=== PATIENT | male | born 1965 | race Caucasian/White ===

== ENCOUNTER 2018-09-04 00:54 | Inpatient (IN) | payer MEDICARE, MEDICAID ==
[~2018-09-04] VITALS: Ht 190.5 cm; Wt 117.9 kg
--- NOTE | 2018-09-04 01:05 | NUR ---
PT [facility]IBRA/[employer] FROM [facility] ER C/C +SI/-HI WITH PLAN TO RUN INTO TRAFFIC. [employer] PUT PATIENT ON 5150. PT IS VERBAL. NAD NOTED. RESP EVEN AND UNLABORED. R FOOT SWOLLEN NOTED. PT ON MONITOR IN BED 12. WILL CONTINUE TO MONITOR.
--- NOTE | 2018-09-04 01:10 | NUR ---
PHLEB AT BEDSIDE FOR LAB DRAW
[2018-09-04 01:18] LABS: BASOPHILS % (AUTO) 0.5 % (0.0-2.0); EOSINOPHILS % (AUTO) 1.8 % (0.0-6.0); HEMATOCRIT 41 % (39-51); HEMOGLOBIN 13.8 g/dL (13.5-17.5); LYMPHOCYTES % (AUTO) 15.8 % (20.0-44.0); MEAN CORPUSCULAR HGB CONC 34 g/dl (31.0-36.0); MEAN CORPUSCULAR VOLUME 86 fL (80-96); MONOCYTES # (AUTO) 0.6 /CMM (0.1-1.30); MONOCYTES % (AUTO) 9.6 % (2.0-12.0); NEUTROPHILS # (AUTO) 4.7 /CMM (1.8-8.9); NEUTROPHILS % (AUTO) 72.3 % (43.0-81.0); PLATELET COUNT (AUTO) 175 /CMM (150-450); RED BLOOD CELL COUNT(AUTO) 4.72 MIL/uL (4.5-6.0); WHITE BLOOD COUNT (AUTO) 6.5 K/uL (4.3-11.0)
--- NOTE | 2018-09-04 01:26 | NUR ---
TECH AT BEDSIDE FOR EKG
[2018-09-04 01:40] LABS: ACETAMINOPHEN 0 ug/ml (10-30); ALANINE AMINOTRANSFERASE 83 U/L (12-78); ALBUMIN 3.9 g/dL (3.4-5.0); ALCOHOL, BLOOD < 3 mg/dL (0-0); ALKALINE PHOSPHATASE 128 U/L (46-116); ASPARTATE AMINOTRANSFERASE 59 U/L (15-37); BILIRUBIN,DIRECT 0.1 mg/dL (0.0-0.2); BILIRUBIN,TOTAL 0.3 mg/dL (0.2-1.0); CALCIUM, SERUM 8.3 mg/dL (8.5-10.1); CARBON DIOXIDE 27 mmol/L (21-32); CHLORIDE 105 mmol/L (98-107); CREATININE 0.8 mg/dL (0.6-1.3); GLUCOSE 125 mg/dL (74-106); SALICYLATE 0.8 mg/dL (2.8-20.0); SODIUM SERUM 141 mmol/L (136-145); TOTAL PROTEIN, SERUM 6.7 g/dL (6.4-8.2); UREA NITROGEN, BLOOD 8 mg/dL (7-18)
[2018-09-04 01:41] LABS: POTASSIUM 2.8 mmol/L (3.5-5.1)
[2018-09-04] MEDS ORDERED: ASPIRIN 81 MG TAB.CHEW PO ONE (02:00)
--- NOTE | 2018-09-04 02:06 | NUR ---
URINE COLLECTED AND SENT TO LAB
[2018-09-04] MEDS ORDERED: MIRT30TA PO (02:19)
[2018-09-04] MEDS ORDERED: ZOLP10TA2 PO (02:19)
[2018-09-04] MEDS ORDERED: LORA-259 PO (02:19)
[2018-09-04] MEDS ORDERED: OLAN15TA3 PO (02:19)
[2018-09-04 02:21] LABS: APPEARANCE,URINE CLEAR (CLEAR); BILIRUBIN,URINE NEGATIVE (NEGATIVE); BLOOD, URINE NEGATIVE Ery/uL (NEGATIVE); COLOR,URINE YELLOW (YELLOW); KETONES,URINE NEGATIVE (NEGATIVE); LEUKOCYTE ESTERASE ,URINE NEGATIVE (NEGATIVE); NITRITE, URINE NEGATIVE (NEGATIVE); PH,URINE 6.5 (5.0-8.0); PROTEIN,URINE NEGATIVE (NEGATIVE); UGLUCOSE NEGATIVE (NEGATIVE); UROBILINOGEN,URINE 0.2 EU/dL (0.2)
[2018-09-04] MEDS ORDERED: FURO-145 PO (02:24)
[2018-09-04] MEDS ORDERED: APIX5TAB PO (02:24)
[2018-09-04] MEDS ORDERED: PANT40TA4 PO (02:24)
[2018-09-04] MEDS ORDERED: LEVE1000 PO (02:24)
[2018-09-04] MEDS ORDERED: METO50TA16 PO (02:24)
[2018-09-04] MEDS ORDERED: DIGO125T PO (02:24)
[2018-09-04] MEDS ORDERED: PHEN97.22 PO (02:24)
[2018-09-04] MEDS ORDERED: ATOR20TA PO (02:24)
[2018-09-04] MEDS: POTASSIUM CL. PREMIX PERIPHER. 50 ML IV SCH ×6 (02:30→08:30)
[2018-09-04] MEDS: Magnesium 1GM/D5W 100ML PREMIX 100 ML IV SCH ×2 (02:30→03:07)
[2018-09-04] MEDS ORDERED: MAG HYDROX/AL HYDROX/SIMETH 30 ML UDC PO PRN (02:30)
[2018-09-04] MEDS ORDERED: ACETAMINOPHEN 325 MG TABLET PO PRN (02:30)
[2018-09-04] MEDS ORDERED: MAGNESIUM HYDROXIDE 30 ML UDC PO PRN (02:30)
[2018-09-04] MEDS ORDERED: Magnesium 1GM/D5W 100ML PREMIX 200 ML IV ONE (02:39)
[2018-09-04] MEDS ORDERED: ASPIRIN 81 MG TAB.CHEW ONE (02:40)
[2018-09-04] MEDS ORDERED: POTASSIUM CL. PREMIX PERIPHER. 300 ML ONE (02:48)
[2018-09-04] MEDS ORDERED: NITROGLYCERIN 0.4 MG/TAB BOTTLE SL ONE (03:15)
--- NOTE | 2018-09-04 03:16 | NUR ---
REPORT GIVEN TO JAGDEEP KELLER FOR MARTINA
--- NOTE | 2018-09-04 03:19 | NUR ---
1/6 POTASSIM CHLORIDE INFUSING. 5 BAGS TAKEN UP WITH PATIENT FOR JAGDEEP KELLER TO INFUSE. 1/2 MAGNESIUM SULFATE INFUSING. 1 BAG TAKEN UP WITH PATIENT FOR JAGDEEP KELLER TO INFUSE.
--- NOTE | 2018-09-04 03:45 | NUR ---
TD PRODUCTION INTERN NOTE: PT ADMITTED FROM ER VIA [facility] WITH ADMITTING DIAGNOSIS OF NSTEMI. PT IS ALERT AND ORIENTED X4. ABLE TO MAKE NEEDS KNOWN. NO APPARENT DISTRESS NOTED. NO COMPLAINTS OF PAIN OR DISCOMFORT AT THIS TIME. NO AUDITORY HALLUCINATION NOTED PER PT. ON ROOM AIR, SATURATING WELL. NO SOB NOTED. ON TELE MONITOR AFIB HR 94BPM. PT HAS AN IV ON RIGHT WRIST #20 INTACT AND PATENT, FLUSHING WELL. NO SIGNS/SYMPTOMS OF ASPIRATION NOTED. PERTINENT ASSESSMENTS DONE. TUMOR NOTED ON RLE, PICTURE TAKEN AND PLACED ON CHART. CALL LIGHT PLACED WITHIN REACH. KEPT CLEAN, DRY AND COMFORTABLE. SIDE RAILS UP X3. BED ALARM ON. BED LOCKED AND IN LOWEST POSITION. WILL CONTINUE TO MONITOR PT.
[2018-09-04 04:01] VITALS: BP 130/82
[2018-09-04] MEDS: MORPHINE SULFATE INJ 2 MG/ML DISP.SYRIN IV PRN ×2 (05:31→20:20)
--- NOTE | 2018-09-04 06:54 | NUR ---
TD RN NOTE: NO CHANGES NOTED THROUGHOUT THE SHIFT. NO APPARENT DISTRESS NOTED. NO COMPLAINTS OF PAIN OR DISCOMFORT AT THIS TIME. NO SOB NOTED. AFIB ON TELE MONITOR HR 94BPM. KEPT CLEAN, DRY AND COMFORTABLE. CALL LIGHT PLACED WITHIN REACH. SAFETY AND FALL PRECAUTIONS OBSERVED AND MAINTAINED. WILL ENDORSE TO DAY SHIFT RN FOR CONTINUITY OF CARE.
[2018-09-04] MEDS ORDERED: IPRA3AMP23 IH (07:59)
[2018-09-04] MEDS ORDERED: ACET-868 PO (07:59)
[2018-09-04 08:00] VITALS: BP 147/85
--- NOTE | 2018-09-04 08:00 | NUR ---
RN NOTE: RECEIVED PATIENT IN BED, AWAKE, ALERT AND VERBALLY RESPONSIVE. RESPIRATION EVEN AND UNLABORED. DENIED ANY PAIN INCLUDING CHEST PAIN. NOTED WITH (R) WRIST IV SITE INFUSING POTASSIUM IV, BUT PATIENT WAS TOUCHING THE IV PUMP AND KEPT TURNING IT OFF BECAUSE HE DOES NOT WANT THE IV POTASSIUM DUE TO BURNING SENSATION. SPOKE WITH THE PATIENT AND INFORMED HIM IF MAYBE THE MD CAN BE INFORMED THAT HE NEEDED TO REPLACE POTASSIUM WITH TABLET FORM. BUT PATIENT STATED THAT HE STILL DOES NOT WANT IT. IV PUMP WAS STOPPED AND WILL INFORM MD ABOUT THE PATIENT'S REFUSAL TO RECEIVE THE IV POTASSIUM REPLACEMENT. BED ALARMED AND LOCKED AT ALL TIMES. CALL LIGHT WITHIN REACH. NEEDS ANTICIPATED. PATIENT ON CLOSE MONITORING WITH STAFF. NO AUDITORY HALLUCINATION NOTED. PATIENT WAS QUIET, COOPERATIVE AND REDIRECTABLE WITH STAFF. WILL CONTINUE TO MONITOR THE PATIENT'S BEHAVIOR AND CONDITION.
[2018-09-04 08:27] LABS: CHOLESTEROL 101 mg/dL (<200); HDL CHOLESTEROL 30 mg/dL (40-60); LDL 48 mg/dL (0-99); THYROID STIMULATING HORMONE 2.827 uIU/mL (0.358-3.74); TRIGLYCERIDES 117 mg/dL (30-150)
[2018-09-04] MEDS: PANTOPRAZOLE 40 MG TABLET.DR PO SCH (08:36)
[2018-09-04 08:50] LABS: MAGNESIUM 1.9 mg/dL (1.8-2.4)
[2018-09-04] MEDS ORDERED: FUROSEMIDE 20 MG TABLET PO SCH (09:00)
[2018-09-04 09:11] LABS: PHOSPHORUS 3.2 mg/dL (2.5-4.9)
[2018-09-04] MEDS: ASPIRIN 81 MG TAB.CHEW PO SCH (09:15)
[2018-09-04] MEDS: LEVETIRACETAM (250 MG) 250 MG TABLET PO SCH ×2 (09:16→17:47)
[2018-09-04] MEDS: DIGOXIN 0.125 MG TABLET PO SCH (09:16)
[2018-09-04] MEDS: APIXABAN 5 MG TABLET PO SCH ×2 (09:17→17:48)
--- NOTE | 2018-09-04 09:46 | NUR ---
RN NOTE: PATIENT RECEIVED 4 BAGS OF POTASSIUM IV FROM LAST NIGHT AND HAS BEEN REFUSING TO RECEIVE THE LAST [address] SPOKE WITH [address]. HILLIARD THAT THE PATIENT REFUSED TO TAKE THE POTASSIUM TABLETS. PER PATIENT, "I DON'T WANT TO TAKE THAT. I WILL THROW IT UP." WITH ORDER TO DC POTASSIUM, NOTED AND CARRIED OUT.
[2018-09-04] MEDS ORDERED: POTASSIUM CHLORIDE 20 MEQ TAB.PRT.SR PO SCH (10:00)
[2018-09-04] MEDS: DILTIAZEM HCL CD 240 MG PO SCH (10:20)
[2018-09-04 12:00] VITALS: BP 131/76
[2018-09-04 16:00] VITALS: BP 133/66
--- NOTE | 2018-09-04 19:45 | NUR ---
RN NOTE: REPORT GIVEN TO PM SHIFT NURSE FOR CONTINUITY OF CARE. PATIENT REMAINED STABLE. ATE 100% OF HIS DINNER MEAL.
--- NOTE | 2018-09-04 19:55 | NUR ---
RN NOTE: PATIENT HAS NO BEHAVIORAL ISSUES OR ANY CHEST PAIN DURING THE SHIFT. REMAINED ON CLOSE MONITORING WITH STAFF.
[2018-09-04 20:00] VITALS: BP 125/66
--- NOTE | 2018-09-04 20:00 | NUR ---
GLOVE CUFFER INITIAL NOTE PT ORIENTED X4. ABLE TO MAKE NEEDS KNOWN. NO APPARENT DISTRESS NOTED. C/O COMPLAINTS OF PAIN & DISCOMFORT IN RT CHEST 02/19. NO AUDITORY HALLUCINATION NOTED PER PT. ON ROOM AIR, SATURATING WELL. NO SOB NOTED. ON TELE MONITOR AFIB HR 110 BPM. PT HAS AN IV ON RIGHT WRIST #20 INTACT AND PATENT, FLUSHING WELL. NO SIGNS/SYMPTOMS OF ASPIRATION NOTED. PERTINENT ASSESSMENTS DONE. CALL LIGHT PLACED WITHIN REACH. KEPT CLEAN, DRY AND COMFORTABLE. SIDE RAILS UP X3. BED ALARM ON. BED LOCKED AND IN LOWEST POSITION. WILL CONTINUE TO MONITOR PT.
[2018-09-04] MEDS: HYDROCODONE/APAP 5/325MG 1 EACH TABLET PO PRN (21:47)
[2018-09-04] MEDS: TEMAZEPAM 15 MG CAPSULE PO PRN (21:47)
[2018-09-04] MEDS: ATORVASTATIN 10 MG TABLET PO SCH (21:48)
[2018-09-04] MEDS ORDERED: MIRTAZAPINE 15 MG TABLET PO SCH (22:00)
[2018-09-04] MEDS ORDERED: OLANZAPINE 5 MG TABLET PO SCH (22:00)
[2018-09-04] MEDS: ONDANSETRON HCL/PF 4 MG/2 ML VIAL IVP PRN (22:14)
[2018-09-05 00:28] VITALS: BP 118/66
[2018-09-05 04:00] VITALS: BP 106/72
--- NOTE | 2018-09-05 06:23 | NUR ---
PSYCHOLOGICAL OPERATIONS SPECIALIST CLOSING NOTE PT ORIENTED X4. ABLE TO MAKE NEEDS KNOWN. NO APPARENT DISTRESS NOTED. DENIES PAIN OR DISCOMFORT AROUND CHEST . NO AUDITORY HALLUCINATION NOTED PER PT. ON ROOM AIR, SATURATING WELL. NO SOB NOTED. ON TELE MONITOR AFIB HR 110 BPM. PT HAS AN IV ON RIGHT WRIST #20 INTACT AND PATENT, FLUSHING WELL. NO SIGNS/SYMPTOMS OF ASPIRATION NOTED. PERTINENT ASSESSMENTS DONE. CALL LIGHT PLACED WITHIN REACH. KEPT CLEAN, DRY AND COMFORTABLE. SIDE RAILS UP X3. BED ALARM ON. BED LOCKED AND IN LOWEST POSITION. WILL CONTINUE TO MONITOR PT.
--- NOTE | 2018-09-05 07:30 | NUR ---
RN NOTES RECEIVED PATIENT IN BED, ASLEEP AROUSABLE TO VERBAL STIMULANT, ORIENTED X4. ABLE TO MAKE NEEDS KNOWN. NOT ON ANY FORM OF DISTRESS AT THIS TIME. NO S/S OF PAIN & DISCOMFORT NOTED AT THIS TIME. ON ROOM AIR, SATURATING WELL. NO SOB NOTED. AFIB WITH HR AT 94BPM ON THE MONITOR. IV ON RIGHT HAND G#20 INTACT AND PATENT, FLUSHING WELL. NO SIGN OF INFECTION OR INFILTRATION NOTED AT THIS TIME. CALL LIGHT PLACED WITHIN REACH. SIDE RAILS UP X2. BED ALARM ON. BED LOCKED AND IN LOWEST POSITION. WILL CONTINUE TO MONITOR.
[2018-09-05 08:00] VITALS: BP 125/75
[2018-09-05 09:45] LABS: BASOPHILS % (AUTO) 0.3 % (0.0-2.0); EOSINOPHILS % (AUTO) 2.3 % (0.0-6.0); HEMATOCRIT 42 % (39-51); HEMOGLOBIN 14.2 g/dL (13.5-17.5); LYMPHOCYTES # (AUTO) 0.6 /CMM (0.8-4.8); LYMPHOCYTES % (AUTO) 10.7 % (20.0-44.0); MEAN CORPUSCULAR HGB CONC 34 g/dl (31.0-36.0); MEAN CORPUSCULAR VOLUME 87 fL (80-96); MONOCYTES # (AUTO) 0.5 /CMM (0.1-1.30); MONOCYTES % (AUTO) 8.6 % (2.0-12.0); NEUTROPHILS # (AUTO) 4.7 /CMM (1.8-8.9); NEUTROPHILS % (AUTO) 78.1 % (43.0-81.0); PLATELET COUNT (AUTO) 161 /CMM (150-450); RED BLOOD CELL COUNT(AUTO) 4.82 MIL/uL (4.5-6.0)
[2018-09-05 10:00] LABS: ALBUMIN 3.3 g/dL (3.4-5.0); BILIRUBIN,TOTAL 0.5 mg/dL (0.2-1.0); CALCIUM, SERUM 8.4 mg/dL (8.5-10.1); CREATININE 0.8 mg/dL (0.6-1.3); MAGNESIUM 1.8 mg/dL (1.8-2.4); PHOSPHORUS 3.6 mg/dL (2.5-4.9); POTASSIUM 3.6 mmol/L (3.5-5.1)
[2018-09-05] MEDS: ASPIRIN 81 MG TAB.CHEW PO SCH (10:20)
[2018-09-05] MEDS: PANTOPRAZOLE 40 MG TABLET.DR PO SCH (10:20)
[2018-09-05] MEDS: LEVETIRACETAM (250 MG) 250 MG TABLET PO SCH ×2 (10:21→16:56)
[2018-09-05] MEDS: DIGOXIN 0.125 MG TABLET PO SCH (10:21)
[2018-09-05] MEDS: APIXABAN 5 MG TABLET PO SCH ×2 (10:21→16:56)
[2018-09-05] MEDS: DILTIAZEM HCL CD 240 MG PO SCH (10:22)
--- NOTE | 2018-09-05 14:00 | NUR ---
RN NOTES SEEN AND EXAMINED BY DR. TEJADA. AWARE OF 5150 HOLD FOR THE PATIENT. PER DR. TEJADA PATIENT CAN BE ADMITTED TO [facility] ONCE PATIENT IS MEDICALLY CLEARED BY ATTENDING. ONCE CLEARANCE IS OBTAINED, WE SHOULD INFORM HER SO SHE CAN CALL INTAKE FOR THE PATIENT.
[2018-09-05] MEDS: MORPHINE SULFATE INJ 2 MG/ML DISP.SYRIN IV PRN ×2 (14:25→21:37)
--- NOTE | 2018-09-05 14:55 | NUR ---
RN NOTES OBTAINED DISCHARGE ORDER FROM IZZY MACHADO NP. INFORMED DR TEJADA, AWAITING RESPONSE Addendum: 09/05/18 at 1843 by PATRICA DUENAS RN DR HERNANDEZ RESPONDED, PER LATER: THERE IS NO AVAILABLE BED AT THIS TIME. PATIENT WILL BE AN OVERFLOW AND THAT SHE WILL SEND MESSAGE TO THE INTAKE.
[2018-09-05] MEDS ORDERED: DILT240C88 PO (14:57)
[2018-09-05] MEDS ORDERED: OLAN5TAB3 PO (14:57)
[2018-09-05] MEDS ORDERED: MIRT15TA PO (14:57)
[2018-09-05 16:00] VITALS: BP 132/86
--- NOTE | 2018-09-05 17:48 | NUR ---
RN NOTES PAGED DR TEJADA FOR UPDATE, TO WHICH THE RESPONDED " THEY WILL SEND A CLINICIAN BUT WITH NO DEFINITE TIME OF ARRIVAL"
--- NOTE | 2018-09-05 19:15 | NUR ---
MS/RN OPENING NOTES PT AWAKE, HOB ELEVATED, WATCHING TV. SITTER AT BEDSIDE. ON ROOM AIR, BREATHING EVEN AND UNLABORED. DENIES SOB AND PAIN AT THIS TIME. DENIES SI/HI AND HALLUCINATIONS AT THIS TIME. IV TO RIGHT WRIST PATENT AND INTACT. PT TO BE DISCHARGED TO GPS, AWAITING BED. BED IN LOW/LOCKED POSITION WITH CALL LIGHT IN REACH. BILATERAL UPPER SIDE RAILS IN PLACE. WILL CONTINUE TO MONITOR
--- NOTE | 2018-09-05 19:49 | NUR ---
RN NOTES ENDORSED FOR CONTINUITY OF CARE. NO ACUTE CHANGES WITHIN THE SHIFT. ALL NURSING NEEDS ANTICIPATED AND ATTENDED. SAFETY MEASURES, ASPIRATION PRECAUTION IN PLACE AT ALL TIMES. CALL LIGHT WITHIN REACH. SITTER AT BEDSIDE
[2018-09-05 20:00] VITALS: BP 140/81
[2018-09-05] MEDS ORDERED: OLANZAPINE 5 MG TABLET PO SCH (22:00)
[2018-09-05] MEDS ORDERED: MIRTAZAPINE 15 MG TABLET PO SCH (22:00)
[2018-09-05] MEDS: ONDANSETRON HCL/PF 4 MG/2 ML VIAL IVP PRN (22:05)
--- NOTE | 2018-09-05 22:08 | NUR ---
MS/RN NOTES PT C/O NAUSEA. ADMINISTERED PRN ZOFRAN ORDERED. EMESIS BAGS PROVIDED AND ELEVATED HOB
[2018-09-05] MEDS: ATORVASTATIN 10 MG TABLET PO SCH (23:30)
[2018-09-06] MEDS: TEMAZEPAM 15 MG CAPSULE PO PRN (01:10)
[2018-09-06] MEDS: MORPHINE SULFATE INJ 2 MG/ML DISP.SYRIN IV PRN ×2 (02:26→19:59)
[2018-09-06 04:00] VITALS: BP 114/66
--- NOTE | 2018-09-06 06:40 | NUR ---
MS/RN CLOSING NOTES PT ASLEEP, OPENS EYES TO NAME/TOUCH. ON ROOM AIR, BREATHING EVEN AND UNLABORED. NO S/S OF SOB OR ACUTE DISTRESS. DENIES FURTHER CHEST PAIN. DENIES SI/HI, AND HALLUCINATIONS AT THIS TIME. IV TO RIGHT WRIST PATENT AND INTACT. NO SIGNIFICANT CHANGES OVERNIGHT. ALL NEEDS MET. SITTER REMAINS AT BEDSIDE. BED IN LOW/LOCKED POSITION WITH CALL LIGHT IN REACH. BILATERAL UPPER SIDE RAILS IN PLACE. STILL WAITING FOR AVAILABLE BED IN GPS. WILL ENDORSE TO DAY SHIFT RN MARTINA.
[2018-09-06 08:00] VITALS: BP 122/72
--- NOTE | 2018-09-06 08:00 | NUR ---
RN NOTES RECEIVED PATIENT IN THE BED SLEEPING, AROUSE WHEN CALLED NAME OR TOUCHED. NO ACUTE RESPIRATORY DISTRESS, V/S STABLE, SCHEDULED MEDICATION ADMINISTERED, PATIENT REFUSED BREAKFAST BECAUSE SLEEPY. PATIENT ON 5150 HOLD, NO BEHAVIORAL DISTRESS NOTED. PATIENT TURN AND REPOSTION SELF IN THE BED, USING URINAL. 1;1 SITTER NEXT O THE BED FOR SAFETY. PATIENT MRSA OF NARES. CONTINUED MONITORING.
[2018-09-06 08:54] VITALS: BP 122/72
[2018-09-06] MEDS: LEVETIRACETAM (250 MG) 250 MG TABLET PO SCH ×2 (10:18→16:11)
[2018-09-06] MEDS: DILTIAZEM HCL CD 240 MG PO SCH (10:19)
[2018-09-06] MEDS: ASPIRIN 81 MG TAB.CHEW PO SCH (10:19)
[2018-09-06] MEDS: PANTOPRAZOLE 40 MG TABLET.DR PO SCH (10:21)
[2018-09-06] MEDS: APIXABAN 5 MG TABLET PO SCH ×2 (10:22→16:13)
[2018-09-06 12:00] VITALS: BP 122/72
[2018-09-06] MEDS ORDERED: DIGOXIN 0.125 MG TABLET PO SCH (13:00)
--- NOTE | 2018-09-06 13:29 | NUR ---
rn notes digoxin not administered p-59 manually checked., patient resting in the bed. 1:1 sitter next to the bed. continued monitoring.
--- NOTE | 2018-09-06 15:00 | NUR ---
RN NOTES PATIENT HALLUCINATING AT THIS TIME , PER PATIENT STILL SUICIDAL IDEATION VOICE TELLING HIM TO HEART HIMSELF. 1;1 SITTER NEXT TO THE BED FOR SAFETY, CALL LIGHT WITHIN TO REACH. CONTINUED MONITORING.
[2018-09-06] MEDS: HYDROCODONE/APAP 5/325MG 1 EACH TABLET PO PRN (15:22)
--- NOTE | 2018-09-06 15:22 | NUR ---
RN NOTES ADMINISTERED NARCO 5/325 MG PO PRN FOR LEFT SHOULDER PAIN 02/19 PER PATIENT REQUEST, V/S TAKEN BP-137/93, P-100. ENCOURAGED PATIENT DRINK FLUID TOLERATED, CONTINUED MONITORING.
[2018-09-06 16:00] VITALS: BP 137/93
--- NOTE | 2018-09-06 16:10 | NUR ---
rn notes administered zofran 4 mg/ml iv push for nausea per patient request.
[2018-09-06] MEDS: ONDANSETRON HCL/PF 4 MG/2 ML VIAL IVP PRN (16:11)
[2018-09-06] MEDS ORDERED: PHENOBARBITAL 30 MG TABLET PO SCH (17:00)
--- NOTE | 2018-09-06 18:30 | NUR ---
rn notes patient going to d/c GPS. patient stable, medication were administered effective. patient 5250 hold. 1:1 sitter next to the bed for safety. endorsed oncoming nurse for plan of care.
--- NOTE | 2018-09-06 19:33 | NUR ---
MS RN NOTES PT REFUSED VACCINATION AND PICTURE TAKEN. EXPLAINED BENEFITS. PT STILL REFUSED/
--- NOTE | 2018-09-06 20:49 | NUR ---
MS RN NOTES PT D/C STABLE. PT D/C PAPER DONE, WITH MED RECON.FAXED TO ADMIITTING FACE SHEET.
[2018-09-06] MEDS ORDERED: MUPIROCIN OINT 2% 22 GM TUBE SCH (21:00)
[2018-09-06] MEDS ORDERED: ASPI-1169 PO (21:36)
[2018-09-06] MEDS ORDERED: LEVE1000 PO (21:52)
[2018-09-06] MEDS ORDERED: DILT240C88 PO (21:52)
[2018-09-06] MEDS ORDERED: MUPI15CR TP (21:52)
[2018-09-06] MEDS ORDERED: PANT40TA2 PO (21:52)
[2018-09-06] MEDS ORDERED: HYDR-3974 PO (21:52)
[2018-09-06] MEDS ORDERED: PHEN30TA40 PO (21:52)
[2018-09-06] MEDS ORDERED: MUPI1OIN NS (21:52)
[2018-09-07] MEDS ORDERED: FUROSEMIDE 20 MG TABLET PO SCH (09:00)
[2018-09-13] MEDS ORDERED: OXCA150T13 PO (15:37)
== END 2018-09-06 20:47 | DRG 281 ==
LOC: ER 01:00 → TELE-TD 02:52 → TELE1 09:45 → MEDSG1 09-05 10:25
PROVIDERS: ADMIT Nurse Practitioner Acute Care; ATTEND Nurse Practitioner Acute Care
DX: I21.A1 Myocardial infarction type 2 (principal); J98.11 Atelectasis; R45.851 Suicidal ideations; E83.42 Hypomagnesemia; I25.10 Atherosclerotic heart disease of native coronary artery without angina pectoris; E87.6 Hypokalemia; E78.5 Hyperlipidemia, unspecified; E66.9 Obesity, unspecified; D64.9 Anemia, unspecified; K21.9 Gastro-esophageal reflux disease without esophagitis; I48.2 Chronic atrial fibrillation; F20.9 Schizophrenia, unspecified; R16.0 Hepatomegaly, not elsewhere classified; R74.0 Nonspecific elevation of levels of transaminase and lactic acid dehydrogenase [LDH]; J44.9 Chronic obstructive pulmonary disease, unspecified; I50.9 Heart failure, unspecified; G40.909 Epilepsy, unspecified, not intractable, without status epilepticus; F41.9 Anxiety disorder, unspecified; F32.9 Major depressive disorder, single episode, unspecified; Z68.32 Body mass index [BMI] 32.0-32.9, adult; F09 Unspecified mental disorder due to known physiological condition; Z91.14 Patient's other noncompliance with medication regimen
CPT/HCPCS: 36415; 71045-TC; 76700-TC; 80048-TC; 80053-TC; 80061-TC; 80076-TC; 80184; 80305; 81000-TC; 83735-TC; 84100-TC; 84443-TC; 84484-TC; 85025-TC; 87081-TC; 93307-TC; G0378; G0480; J2270; J2405; J3475; J3480; J7040

== ENCOUNTER 2018-09-06 20:55 | Inpatient (IN) | payer MEDICARE, MEDICAID ==
[~2018-09-06] VITALS: Ht 190.5 cm; Wt 123.8 kg
[~2018-09-06 20:55] MED LIST: ACET-868 PO; APIX5TAB PO; ATOR20TA PO; DIGO125T PO; DILT240C88 PO; FURO-145 PO; IPRA3AMP23 IH; LEVE1000 PO; LORA-259 PO; MIRT15TA PO; MIRT30TA PO; OLAN5TAB3 PO; PANT40TA4 PO; PHEN97.22 PO; ZOLP10TA2 PO
[2018-09-06 21:00] VITALS: BP 125/76
[2018-09-06] MEDS ORDERED: MAGNESIUM HYDROXIDE 30 ML UDC PO PRN (21:00)
[2018-09-06] MEDS ORDERED: ACETAMINOPHEN 325 MG TABLET PO PRN (21:00)
[2018-09-06] MEDS ORDERED: ASPI-1169 PO (21:36)
[2018-09-06] MEDS ORDERED: PANT40TA2 PO (21:52)
[2018-09-06] MEDS ORDERED: MUPI15CR TP (21:52)
[2018-09-06] MEDS ORDERED: DILT240C88 PO (21:52)
[2018-09-06] MEDS ORDERED: PHEN30TA40 PO (21:52)
[2018-09-06] MEDS ORDERED: MUPI1OIN NS (21:52)
[2018-09-06] MEDS ORDERED: HYDR-3974 PO (21:52)
[2018-09-06] MEDS ORDERED: LEVE1000 PO (21:52)
[2018-09-06] MEDS ORDERED: ALBUTEROL FS 2.5 MG/0.5 ML VIAL.NEB NEB PRN (23:00)
[2018-09-06] MEDS ORDERED: LEVETIRACETAM (250 MG) 250 MG TABLET PO SCH (23:30)
[2018-09-06] MEDS: ATORVASTATIN 10 MG TABLET PO SCH (23:48)
[2018-09-06] MEDS: PHENOBARBITAL 30 MG TABLET PO SCH (23:48)
[2018-09-07] MEDS: TEMAZEPAM 7.5 MG CAPSULE PO PRN ×2 (00:01→21:30)
[2018-09-07] MEDS ORDERED: PANTOPRAZOLE 40 MG TABLET.DR PO SCH (07:30)
[2018-09-07 08:00] VITALS: BP 132/71
[2018-09-07] MEDS ORDERED: LEVETIRACETAM (250 MG) 250 MG TABLET PO SCH (09:00)
[2018-09-07] MEDS ORDERED: PHENOBARBITAL 30 MG TABLET PO SCH (09:00)
[2018-09-07] MEDS ORDERED: ACETAMINOPHEN 325 MG TABLET PO SCH (09:00)
[2018-09-07] MEDS: PHENOBARBITAL 30 MG TABLET PO SCH ×3 (09:00→17:24)
[2018-09-07] MEDS ORDERED: MUPIROCIN OINT 2% 22 GM TUBE SCH (09:00)
[2018-09-07] MEDS: PANTOPRAZOLE 40 MG TABLET.DR PO SCH (12:19)
[2018-09-07] MEDS: FUROSEMIDE 20 MG TABLET PO SCH (12:20)
[2018-09-07] MEDS: DILTIAZEM HCL CD 240 MG PO SCH (12:20)
[2018-09-07] MEDS: ASPIRIN 81 MG TAB.CHEW PO SCH (12:22)
[2018-09-07] MEDS: MUPIROCIN OINT 2% 22 GM TUBE SCH ×2 (12:22→21:03)
[2018-09-07] MEDS: LEVETIRACETAM (250 MG) 250 MG TABLET PO SCH ×2 (12:25→20:57)
[2018-09-07] MEDS: OLANZAPINE 2.5 MG TABLET PO SCH (14:50)
[2018-09-07 16:00] VITALS: BP 147/76
[2018-09-07] MEDS ORDERED: DIGOXIN 0.125 MG TABLET PO SCH (16:09)
[2018-09-07] MEDS: ATORVASTATIN 10 MG TABLET PO SCH (21:04)
[2018-09-07 21:49] VITALS: BP 131/81
[2018-09-07] MEDS ORDERED: ATORVASTATIN 10 MG TABLET PO SCH (22:00)
[2018-09-07] MEDS ORDERED: OLANZAPINE 10 MG TABLET PO SCH (22:00)
[2018-09-07] MEDS ORDERED: ZOLPIDEM TARTRATE 10 MG TABLET PO SCH (22:00)
[2018-09-07] MEDS: LORAZEPAM 0.5 MG TABLET PO PRN (22:52)
[2018-09-07] MEDS: MAG HYDROX/AL HYDROX/SIMETH 30 ML UDC PO PRN (23:05)
[2018-09-07] MEDS: HYDROCODONE/APAP 5/325MG 1 EACH TABLET PO PRN (23:59)
[2018-09-08] MEDS: PANTOPRAZOLE 40 MG TABLET.DR PO SCH (07:30)
[2018-09-08 08:00] VITALS: BP 116/62
[2018-09-08] MEDS: DILTIAZEM HCL CD 240 MG PO SCH (09:24)
[2018-09-08] MEDS: ASPIRIN 81 MG TAB.CHEW PO SCH (09:25)
[2018-09-08] MEDS: FUROSEMIDE 20 MG TABLET PO SCH (09:25)
[2018-09-08] MEDS: LEVETIRACETAM (250 MG) 250 MG TABLET PO SCH ×2 (09:25→21:01)
[2018-09-08] MEDS: PHENOBARBITAL 30 MG TABLET PO SCH ×3 (09:25→17:20)
[2018-09-08] MEDS: OLANZAPINE 2.5 MG TABLET PO SCH (09:25)
[2018-09-08] MEDS: MUPIROCIN OINT 2% 22 GM TUBE SCH ×2 (09:26→21:02)
[2018-09-08 15:39] LABS: CREATININE 0.7 mg/dL (0.6-1.3); POTASSIUM 4.9 mmol/L (3.5-5.1)
[2018-09-08 16:00] VITALS: BP 133/84
[2018-09-08] MEDS: DIGOXIN 0.125 MG TABLET PO SCH (17:20)
[2018-09-08] MEDS: MAG HYDROX/AL HYDROX/SIMETH 30 ML UDC PO PRN (19:24)
[2018-09-08 20:20] VITALS: BP 106/86
[2018-09-08] MEDS: ATORVASTATIN 10 MG TABLET PO SCH (21:01)
[2018-09-08] MEDS: LORAZEPAM 0.5 MG TABLET PO PRN (21:25)
[2018-09-08] MEDS: TEMAZEPAM 7.5 MG CAPSULE PO PRN (21:44)
[2018-09-08] MEDS ORDERED: OLANZAPINE 5 MG TABLET PO SCH (22:00)
[2018-09-08] MEDS: HYDROCODONE/APAP 5/325MG 1 EACH TABLET PO PRN (22:13)
[2018-09-09 08:00] VITALS: BP 106/61
[2018-09-09] MEDS: PANTOPRAZOLE 40 MG TABLET.DR PO SCH (11:00)
[2018-09-09] MEDS: FUROSEMIDE 20 MG TABLET PO SCH (11:00)
[2018-09-09] MEDS: OLANZAPINE 2.5 MG TABLET PO SCH ×2 (11:00→12:57)
[2018-09-09] MEDS: PHENOBARBITAL 30 MG TABLET PO SCH ×3 (11:00→16:40)
[2018-09-09] MEDS: DILTIAZEM HCL CD 240 MG PO SCH (11:00)
[2018-09-09] MEDS: MUPIROCIN OINT 2% 22 GM TUBE SCH ×2 (11:00→21:02)
[2018-09-09] MEDS: LEVETIRACETAM (250 MG) 250 MG TABLET PO SCH ×3 (11:40→21:02)
[2018-09-09 12:00] VITALS: BP 134/60
[2018-09-09] MEDS: DIGOXIN 0.125 MG TABLET PO SCH (12:57)
[2018-09-09] MEDS: ASPIRIN 81 MG TAB.CHEW PO SCH (12:57)
[2018-09-09 16:00] VITALS: BP 130/90
[2018-09-09 19:16] VITALS: BP 165/109
[2018-09-09] MEDS ORDERED: LORAZEPAM 1 MG TABLET PO STA (19:43)
[2018-09-09 20:00] VITALS: BP 124/86
[2018-09-09] MEDS ORDERED: LORAZEPAM 1 MG TABLET SL PRN (20:00)
[2018-09-09] MEDS: ATORVASTATIN 10 MG TABLET PO SCH (21:02)
[2018-09-09] MEDS ORDERED: OLANZAPINE 5 MG TABLET PO SCH (22:00)
[2018-09-09] MEDS: TEMAZEPAM 7.5 MG CAPSULE PO PRN (22:22)
[2018-09-10 07:26] VITALS: BP 142/77
[2018-09-10 08:00] VITALS: BP 132/70
[2018-09-10] MEDS: ASPIRIN 81 MG TAB.CHEW PO SCH (08:38)
[2018-09-10] MEDS: LEVETIRACETAM (250 MG) 250 MG TABLET PO SCH (08:38)
[2018-09-10] MEDS: PANTOPRAZOLE 40 MG TABLET.DR PO SCH (08:38)
[2018-09-10] MEDS: PHENOBARBITAL 30 MG TABLET PO SCH (08:38)
[2018-09-10] MEDS: FUROSEMIDE 20 MG TABLET PO SCH (08:38)
[2018-09-10 08:39] VITALS: BP 132/70
[2018-09-10] MEDS: DILTIAZEM HCL CD 240 MG PO SCH (08:39)
[2018-09-10] MEDS: MUPIROCIN OINT 2% 22 GM TUBE SCH (08:43)
[2018-09-10 10:22] LABS: BASOPHILS % (AUTO) 0.2 % (0.0-2.0); EOSINOPHILS % (AUTO) 0.6 % (0.0-6.0); HEMATOCRIT 41 % (39-51); HEMOGLOBIN 14.1 g/dL (13.5-17.5); LYMPHOCYTES # (AUTO) 0.6 /CMM (0.8-4.8); LYMPHOCYTES % (AUTO) 5.8 % (20.0-44.0); MEAN CORPUSCULAR HGB CONC 34 g/dl (31.0-36.0); MEAN CORPUSCULAR VOLUME 86 fL (80-96); MONOCYTES # (AUTO) 0.7 /CMM (0.1-1.30); MONOCYTES % (AUTO) 6.8 % (2.0-12.0); NEUTROPHILS % (AUTO) 86.6 % (43.0-81.0); PLATELET COUNT (AUTO) 180 /CMM (150-450); RED BLOOD CELL COUNT(AUTO) 4.76 MIL/uL (4.5-6.0); WHITE BLOOD COUNT (AUTO) 10.4 K/uL (4.3-11.0)
[2018-09-10 10:28] LABS: CALCIUM, SERUM 8.4 mg/dL (8.5-10.1); CARBON DIOXIDE 25 mmol/L (21-32); CHLORIDE 105 mmol/L (98-107); CREATININE 0.6 mg/dL (0.6-1.3); GLUCOSE 122 mg/dL (74-106); SODIUM SERUM 140 mmol/L (136-145); UREA NITROGEN, BLOOD 15 mg/dL (7-18)
[2018-09-10 10:35] LABS: PHENOBARBITAL 20 ug/ml (15-39)
[2018-09-10 10:36] LABS: DIGOXIN < 0.20 ng/mL (0.90-2.00)
[2018-09-10] MEDS ORDERED: LORAZEPAM INJ 2 MG/ML VIAL IV PRN (11:00)
[2018-09-10] MEDS ORDERED: LEVETIRACETAM (250 MG) 250 MG TABLET PO SCH (13:00)
[2018-09-13] MEDS ORDERED: OXCA150T13 PO (15:37)
== END 2018-09-10 11:35 | disposition short-term general hospital (02) | DRG 885 ==
LOC: GPS 20:55
PROVIDERS: ADMIT Psychiatry & Neurology Psychosomatic Medicine; ATTEND Psychiatry & Neurology Psychosomatic Medicine
DX: F25.1 Schizoaffective disorder, depressive type (principal); I11.0 Hypertensive heart disease with heart failure; I50.22 Chronic systolic (congestive) heart failure; E78.5 Hyperlipidemia, unspecified; E66.9 Obesity, unspecified; I25.10 Atherosclerotic heart disease of native coronary artery without angina pectoris; J44.9 Chronic obstructive pulmonary disease, unspecified; K21.9 Gastro-esophageal reflux disease without esophagitis; G40.909 Epilepsy, unspecified, not intractable, without status epilepticus; I48.91 Unspecified atrial fibrillation; Z22.322 Carrier or suspected carrier of Methicillin resistant Staphylococcus aureus; Z68.34 Body mass index [BMI] 34.0-34.9, adult; E86.0 Dehydration; F19.90 Other psychoactive substance use, unspecified, uncomplicated; Z59.0 Homelessness
CPT/HCPCS: 36415; 70450-TC; 73020; 73564-TC; 80048-TC; 80162-TC; 80184; 82962-TC; 85025-TC

== ENCOUNTER 2018-09-10 11:48 | Inpatient (IN) | payer MEDICAID, MEDICARE ==
[~2018-09-10] VITALS: Ht 185.4 cm; Wt 117.5 kg
[2018-09-10 11:45] VITALS: BP 126/56
--- NOTE | 2018-09-10 11:45 | NUR ---
RN NOTES RECEIVED PT IN ROOM 107 FROM [facility] , A/Ox1, CONFUSED , REFUSED TO TALK AT TIMES , ON RA , RESPIRATION EVEN AND UNLABORED, NO SOB NOTED,ON TELE A.FIB, HR IN 100'S. MILD WEAKNESS NOTED ON L ARM , NO SKIN BREAK DOWN NOTED, SR UP x3, CALL LIGHT WITHIN EASY REACH, BED LOCKED AND IN LOWEST POSITION , CONTINUE TO MONITOR.
[~2018-09-10 11:48] MED LIST changes: -APIX5TAB PO; +ASPI-1169 PO; +HYDR-3974 PO; +MUPI15CR TP; +MUPI1OIN NS; +PANT40TA2 PO; +PHEN30TA40 PO
[2018-09-10] MEDS ORDERED: Z GUARD REMEDY 2 OZ OINT TP PRN (13:00)
[2018-09-10] MEDS ORDERED: ACETAMINOPHEN 325 MG TABLET PO PRN (13:00)
[2018-09-10] MEDS ORDERED: MAGNESIUM HYDROXIDE 30 ML UDC PO PRN (13:00)
[2018-09-10] MEDS ORDERED: MAG HYDROX/AL HYDROX/SIMETH 30 ML UDC PO PRN (13:00)
[2018-09-10] MEDS: ENOXAPARIN SODIUM 40 MG/0.4 ML DISP.SYRIN SQ SCH (13:35)
[2018-09-10] MEDS: IV NS 0.9% 1,000 ML IV PRN (13:54)
[2018-09-10] MEDS ORDERED: MUPIROCIN 2% CREAM 22 GM TUBE TP SCH (14:00)
[2018-09-10 16:00] VITALS: BP 143/73
[2018-09-10] MEDS: PHENOBARBITAL 30 MG TABLET PO SCH (16:18)
--- NOTE | 2018-09-10 17:00 | NUR ---
RN NOTES PT IS MORE ALERT BUT STILL CONFUSED, AND WANTS TO GET OUT OF THE BED AND WALKS AROUND .PT IS ON SEIZURE PRECAUTION AND BRIANA RISK FOR FALL , ORDER RECEIVED FOR 1:1 SITTER , NURSING SEAFOOD PACKER NOTIFIED . CONTINUE TO MONITOR .
--- NOTE | 2018-09-10 18:09 | NUR ---
RN NOTES SITTER AT THE BEDSIDE, SR UP X3, VSS STABLE, WILL ENDOSE TO FAUCETS ASSEMBLER NURSE FOR CONTINUITY OF CARE .
[2018-09-10] MEDS ORDERED: LEVETIRACETAM (500MG) 1,000 MG in IV NS 0.9% 100 ML IV ONE (18:30)
[2018-09-10 20:00] VITALS: BP 134/79
--- NOTE | 2018-09-10 20:05 | NUR ---
CIGAR PATCHER INITIAL NOTES RECEIVED PT IN BED FROM [facility] , A/Ox2, CONFUSED , ANXIOUS, CONSTANTLY HEAD OF GEOGRAPHY LIGHT, DEMANDING FOR NARCOTICS AND THREATENING TO LEAVE IF NOT GIVEN MORPHINE, AM RN ENDORSED TRIED TO GET MORPHINE ORDER BUT MD REFUSED , ON RA , RESPIRATION EVEN AND UNLABORED, NO SOB NOTED,ON TELE A.FIB, HR IN 100'S. MILD WEAKNESS NOTED ON L ARM , NO SKIN BREAK DOWN NOTED, SR UP x3, CALL LIGHT WITHIN EASY REACH, BED LOCKED AND IN LOWEST POSITION , CONTINUE TO MONITOR.
[2018-09-10] MEDS: LORAZEPAM INJ 2 MG/ML VIAL IV PRN (20:25)
[2018-09-10] MEDS: HYDROCODONE/APAP 5/325MG 1 EACH TABLET PO PRN (20:26)
[2018-09-10] MEDS: ONDANSETRON HCL/PF 4 MG/2 ML VIAL IVP PRN (20:26)
[2018-09-10] MEDS: LEVETIRACETAM (250 MG) 250 MG TABLET PO SCH (20:26)
[2018-09-10] MEDS: MUPIROCIN OINT 2% 22 GM TUBE SCH (20:40)
--- NOTE | 2018-09-10 20:41 | NUR ---
ATIVAN GIVEN FOR C/O SEIZURE LIKE ACTIVITIES.
[2018-09-10] MEDS: ATORVASTATIN 10 MG TABLET PO SCH (21:28)
[2018-09-10] MEDS: OLANZAPINE 5 MG TABLET PO SCH (21:30)
[2018-09-11] VITALS: BP 123/70
[2018-09-11] MEDS: IPRATROPIUM NEB FS 0.5 MG/2.5 ML AMPUL.NEB NEB SCH ×3 (00:03→19:44)
--- NOTE | 2018-09-11 00:04 | NUR ---
RT NOTE MADE AWARE OF SCHEDULED TREATMENT ORDER. WILL FOLLOW THROUGH WITH TREATMENT SCHEDULED.
[2018-09-11 04:21] VITALS: BP 113/63
--- NOTE | 2018-09-11 06:24 | NUR ---
AIR ANALYSIS ENGINEERING TECHNICIAN CLOSING NOTES ENDORSED PT IN BED , A/Ox2, CONFUSED , ANXIOUS, CONSTANTLY CONSUMER BANKER LIGHT, DEMANDING FOR NARCOTICS AND THREATENING TO LEAVE IF NOT GIVEN MORPHINE, AM RN ENDORSED TRIED TO GET MORPHINE ORDER BUT MD REFUSED , ON RA , RESPIRATION EVEN AND UNLABORED, NO SOB NOTED,ON TELE A.FIB, HR IN 90'S. MILD WEAKNESS NOTED ON L ARM , NO SKIN BREAK DOWN NOTED, SR UP x3, CALL LIGHT WITHIN EASY REACH, BED LOCKED AND IN LOWEST POSITION , CONTINUE TO MONITOR.
[2018-09-11 06:27] LABS: BASOPHILS % (AUTO) 0.2 % (0.0-2.0); EOSINOPHILS % (AUTO) 0.9 % (0.0-6.0); HEMATOCRIT 39 % (39-51); HEMOGLOBIN 13.3 g/dL (13.5-17.5); LYMPHOCYTES # (AUTO) 0.7 /CMM (0.8-4.8); LYMPHOCYTES % (AUTO) 7.4 % (20.0-44.0); MEAN CORPUSCULAR HGB CONC 35 g/dl (31.0-36.0); MEAN CORPUSCULAR VOLUME 86 fL (80-96); MONOCYTES # (AUTO) 0.8 /CMM (0.1-1.30); MONOCYTES % (AUTO) 7.7 % (2.0-12.0); NEUTROPHILS # (AUTO) 8.3 /CMM (1.8-8.9); NEUTROPHILS % (AUTO) 83.8 % (43.0-81.0); PLATELET COUNT (AUTO) 176 /CMM (150-450); RED BLOOD CELL COUNT(AUTO) 4.47 MIL/uL (4.5-6.0); WHITE BLOOD COUNT (AUTO) 9.8 K/uL (4.3-11.0)
[2018-09-11 06:37] LABS: CALCIUM, SERUM 8.3 mg/dL (8.5-10.1); CREATININE 0.6 mg/dL (0.6-1.3); PHOSPHORUS 3.6 mg/dL (2.5-4.9); POTASSIUM 3.9 mmol/L (3.5-5.1)
[2018-09-11 08:00] VITALS: BP 100/66
[2018-09-11] MEDS: FUROSEMIDE 20 MG TABLET PO SCH (08:22)
[2018-09-11] MEDS: LEVETIRACETAM (250 MG) 250 MG TABLET PO SCH (08:23)
[2018-09-11] MEDS: PHENOBARBITAL 30 MG TABLET PO SCH ×3 (08:23→16:46)
[2018-09-11] MEDS: PANTOPRAZOLE 40 MG TABLET.DR PO SCH (08:23)
[2018-09-11] MEDS: DILTIAZEM HCL CD 240 MG PO SCH (08:23)
[2018-09-11] MEDS: ASPIRIN 81 MG TAB.CHEW PO SCH (08:23)
[2018-09-11] MEDS: MUPIROCIN OINT 2% 22 GM TUBE SCH ×2 (08:24→21:14)
[2018-09-11 12:00] VITALS: BP 129/86
[2018-09-11] MEDS: HYDROCODONE/APAP 5/325MG 1 EACH TABLET PO PRN ×2 (13:39→20:35)
[2018-09-11] MEDS: LORAZEPAM INJ 2 MG/ML VIAL IV PRN ×2 (13:39→20:57)
[2018-09-11] MEDS: DIGOXIN 0.125 MG TABLET PO SCH (13:39)
[2018-09-11] MEDS: CALCIUM CARB 600MG /VIT D 1 EACH TABLET PO SCH (13:41)
[2018-09-11 16:00] VITALS: BP 138/72
[2018-09-11] MEDS: IV NS 0.9% 1,000 ML IV PRN (16:46)
[2018-09-11] MEDS: OXCARBAZEPINE 150 MG TABLET PO SCH (16:46)
[2018-09-11 20:00] VITALS: BP 140/81
[2018-09-11] MEDS: ENOXAPARIN SODIUM 40 MG/0.4 ML DISP.SYRIN SQ SCH (20:56)
[2018-09-11] MEDS: ATORVASTATIN 10 MG TABLET PO SCH (20:56)
[2018-09-11] MEDS: OLANZAPINE 5 MG TABLET PO SCH (20:57)
[2018-09-11] MEDS: ONDANSETRON HCL/PF 4 MG/2 ML VIAL IVP PRN (21:15)
[2018-09-12] VITALS: BP 114/69
[2018-09-12] MEDS: LORAZEPAM INJ 2 MG/ML VIAL IV PRN ×4 (00:50→23:13)
[2018-09-12 04:00] VITALS: BP 112/74
[2018-09-12] MEDS: IV NS 0.9% 1,000 ML IV PRN ×2 (06:00→18:42)
--- NOTE | 2018-09-12 07:15 | NUR ---
RN OPENING NOTE RECEIVED PATIENT IN BED ASLEEP BUT EASILY AROUSABLE TO TOUCH. PATIENT GETS REALLY ANXIOUS AND AGITATED, SITTER ON BEDSIDE. HAS A RIGHT LOWER EXTREMITY EDEMA. HAS A LEFT UPPER ARM MIDLINE WITH NS RUNNING AT 75 ML/HR. NO COMPLAINS OF ANY PAIN OR ANY SOB. BED LOCKED AND ON LOW POSITION. CALL LIGHT WITHIN REACH. WILL CONTINUE TO MONITOR.
[2018-09-12 07:38] LABS: BASOPHILS % (AUTO) 0.4 % (0.0-2.0); EOSINOPHILS % (AUTO) 1.8 % (0.0-6.0); HEMATOCRIT 39 % (39-51); HEMOGLOBIN 13.4 g/dL (13.5-17.5); LYMPHOCYTES # (AUTO) 0.7 /CMM (0.8-4.8); LYMPHOCYTES % (AUTO) 11.7 % (20.0-44.0); MEAN CORPUSCULAR HGB CONC 35 g/dl (31.0-36.0); MEAN CORPUSCULAR VOLUME 86 fL (80-96); MONOCYTES # (AUTO) 0.6 /CMM (0.1-1.30); MONOCYTES % (AUTO) 9.8 % (2.0-12.0); NEUTROPHILS # (AUTO) 4.5 /CMM (1.8-8.9); NEUTROPHILS % (AUTO) 76.3 % (43.0-81.0); PLATELET COUNT (AUTO) 172 /CMM (150-450); RED BLOOD CELL COUNT(AUTO) 4.51 MIL/uL (4.5-6.0); WHITE BLOOD COUNT (AUTO) 5.9 K/uL (4.3-11.0)
[2018-09-12] MEDS: IPRATROPIUM NEB FS 0.5 MG/2.5 ML AMPUL.NEB NEB SCH ×2 (07:45→19:13)
[2018-09-12 07:48] LABS: CALCIUM, SERUM 8.4 mg/dL (8.5-10.1); CREATININE 0.7 mg/dL (0.6-1.3); MAGNESIUM 1.9 mg/dL (1.8-2.4); PHOSPHORUS 3.8 mg/dL (2.5-4.9)
[2018-09-12 08:00] VITALS: BP 114/70
[2018-09-12] MEDS: CALCIUM CARB 600MG /VIT D 1 EACH TABLET PO SCH (09:16)
[2018-09-12] MEDS: OXCARBAZEPINE 150 MG TABLET PO SCH ×2 (09:17→16:29)
[2018-09-12] MEDS: DILTIAZEM HCL CD 240 MG PO SCH (09:17)
[2018-09-12] MEDS: ASPIRIN 81 MG TAB.CHEW PO SCH (09:17)
[2018-09-12] MEDS: PANTOPRAZOLE 40 MG TABLET.DR PO SCH (09:17)
[2018-09-12] MEDS: FUROSEMIDE 20 MG TABLET PO SCH (09:17)
[2018-09-12] MEDS: MUPIROCIN OINT 2% 22 GM TUBE SCH ×2 (09:18→21:18)
[2018-09-12] MEDS: PHENOBARBITAL 30 MG TABLET PO SCH ×3 (09:18→16:29)
[2018-09-12 12:00] VITALS: BP 123/81
[2018-09-12] MEDS: DIGOXIN 0.125 MG TABLET PO SCH (12:41)
--- NOTE | 2018-09-12 13:30 | NUR ---
RN NOTE PATIENT REFUSED TO EAT HIS BREAKFAST AND LUNCH. WILL OFFER AGAIN LATER.
--- NOTE | 2018-09-12 14:30 | NUR ---
RN NOTE PATIENT ATE HIS LUNCH 100%.
[2018-09-12 16:00] VITALS: BP 150/84
[2018-09-12] MEDS: HYDROCODONE/APAP 5/325MG 1 EACH TABLET PO PRN (17:05)
--- NOTE | 2018-09-12 17:05 | NUR ---
RN NOTE PATIENT STANDING ON FRONT OF HIS DOOR, BY THE DOORWAY. VERY AGITATED AND ASKING FOR MEDICATIONS. PATIENT IS VERY ALERT AND ORIENTED. WAS GIVEN ALL NEEDS.
[2018-09-12] MEDS: ONDANSETRON HCL/PF 4 MG/2 ML VIAL IVP PRN (18:45)
--- NOTE | 2018-09-12 19:39 | NUR ---
RN CLOSING NOTE PATIENT IN BED AWAKE AND VERY AGITATED. REPORT GIVEN TO NOC SHIFT. PATIENT ASKED FOR PAIN MED, ANTI NAUSEA MED, HIS ATIVAN - ALL NEEDS ARE MET. BED LOCKED AND ON LOW POSITION, PATIENT IS AMBULATORY. CALL LIGHT WITHIN REACH. ENDORSED TO NOC SHIFT ABOUT CONTINUITY OF CARE.
[2018-09-12 20:00] VITALS: BP 140/87
[2018-09-12] MEDS: OLANZAPINE 5 MG TABLET PO SCH (21:16)
[2018-09-12] MEDS: ATORVASTATIN 10 MG TABLET PO SCH (21:16)
[2018-09-12] MEDS: ENOXAPARIN SODIUM 40 MG/0.4 ML DISP.SYRIN SQ SCH (21:18)
[2018-09-13] VITALS: BP 132/86
[2018-09-13] MEDS: HYDROCODONE/APAP 5/325MG 1 EACH TABLET PO PRN (00:48)
[2018-09-13 06:36] VITALS: BP 117/73
--- NOTE | 2018-09-13 06:43 | NUR ---
pt asleep now, pt started agitated, wanting to leave the hospital ladt
--- NOTE | 2018-09-13 06:44 | NUR ---
pt asleep at this time, pt slept at 0300 this morning, pt started 1930 last night agitated wanting to go home, no family ,no friends, pt walking unsteady, had to compromise with giving food and a lot of drinks of ice tea. pt had sandwich, all the saltine, monica crackers. no vomiting reported. had to stay and watch pt in the room, unable to set the bed alarm since pt is able to turned it off.sitting with pt till he fall asleep ,given norco for hip pain, ativan for restlessness and agitation. had bed bath and noted hr dropped to 35 when noted towel was covered to his face. but return to normal immediately. all needs attended. vss,afebrile.
[2018-09-13] MEDS: IPRATROPIUM NEB FS 0.5 MG/2.5 ML AMPUL.NEB NEB SCH ×2 (07:17→20:04)
[2018-09-13 08:00] VITALS: BP 104/66
[2018-09-13] MEDS: PANTOPRAZOLE 40 MG TABLET.DR PO SCH (08:13)
--- NOTE | 2018-09-13 08:39 | NUR ---
SANDWICH COUNTER ATTENDANT OPENING NOTES PATIENT RECEIVED ASLEEP IN BED. NO S/S OF DISTRESS, NO SOB. MAILE MIDLINE INTACT AND PATENT. LH SL INTACT AND PATENT. AFIB ON TELE. SAFETY MEASURES IN PLACE, BED IN LOW LOCKED POSITION, CALL LIGHT WITHIN REACH. WILL CONTINUE TO MONITOR,
[2018-09-13] MEDS: CALCIUM CARB 600MG /VIT D 1 EACH TABLET PO SCH (09:47)
[2018-09-13] MEDS: ASPIRIN 81 MG TAB.CHEW PO SCH (09:47)
[2018-09-13] MEDS: PHENOBARBITAL 30 MG TABLET PO SCH ×3 (09:48→17:04)
[2018-09-13] MEDS: MUPIROCIN OINT 2% 22 GM TUBE SCH (09:49)
[2018-09-13] MEDS: DILTIAZEM HCL CD 240 MG PO SCH (09:50)
[2018-09-13] MEDS: FUROSEMIDE 20 MG TABLET PO SCH (09:50)
[2018-09-13] MEDS: OXCARBAZEPINE 150 MG TABLET PO SCH ×2 (09:51→16:46)
[2018-09-13] MEDS: IV NS 0.9% 1,000 ML IV PRN (10:44)
[2018-09-13 12:00] VITALS: BP 123/76
[2018-09-13] MEDS: DIGOXIN 0.125 MG TABLET PO SCH (13:47)
[2018-09-13] MEDS ORDERED: OXCA150T13 PO (15:37)
[2018-09-13 16:00] VITALS: BP 143/74
--- NOTE | 2018-09-13 19:23 | NUR ---
TENTS ASSEMBLER NOTES PT REFUSED PICTURE TAKEN. EXPLAINED RISK AND BENEFITS. PT REFUSED STILL REFUSED.
[2018-09-13 20:00] VITALS: BP 120/83
--- NOTE | 2018-09-13 20:29 | NUR ---
INFORMATION TECHNOLOGY COORDINATOR NOTES PT D/C STABLE ON [facility] WITH EMT TEAM. V/S STABLE. BP 120/83. HR OF 98. O2 SAT 98% ON RA. TEMPT 97.5. MIDLINE AND PERIPHERAL IV REMOVED, NO BLEEDING NOTED. PT REFUSED WOUND PICTURE AND BELONGING LIST SIGNED. D/C INSTRUCTIONS GIVEN. REPORT GIVEN TO SNF. TELE BOX REMOVED.
--- NOTE | 2018-09-13 20:46 | NUR ---
PICK PACK WORKER CLOSING NOTES PATIENT IN BED. NO S/S OF DISTRESS, NO SOB. MAILE MIDLINE INTACT AND PATENT. LH SL INTACT AND PATENT. AFIB ON TELE. SAFETY MEASURES IN PLACE, BED IN LOW LOCKED POSITION, CALL LIGHT WITHIN REACH. CARE ENDORSED TO NIGHT RN.
== END 2018-09-13 20:30 | DRG 101 ==
LOC: TELE1 11:48
PROVIDERS: ADMIT Hospitalist; ATTEND Hospitalist
PROC: 05H633Z Insertion of Infusion Device into Left Subclavian Vein, Percutaneous Approach (ICD-10-PCS; principal; 2018-09-10)
PROC: B547ZZA Ultrasonography of Left Subclavian Vein, Guidance (ICD-10-PCS; 2018-09-10)
DX: G40.909 Epilepsy, unspecified, not intractable, without status epilepticus (principal); E78.5 Hyperlipidemia, unspecified; I48.91 Unspecified atrial fibrillation; I25.10 Atherosclerotic heart disease of native coronary artery without angina pectoris; I11.0 Hypertensive heart disease with heart failure; K21.9 Gastro-esophageal reflux disease without esophagitis; J44.9 Chronic obstructive pulmonary disease, unspecified; E66.9 Obesity, unspecified; Z68.34 Body mass index [BMI] 34.0-34.9, adult; F25.1 Schizoaffective disorder, depressive type; F09 Unspecified mental disorder due to known physiological condition; F19.90 Other psychoactive substance use, unspecified, uncomplicated; D49.89 Neoplasm of unspecified behavior of other specified sites; I50.9 Heart failure, unspecified
CPT/HCPCS: 36415; 36569; 80048-TC; 80061-TC; 83735-TC; 84100-TC; 85025-TC; 87081-TC; 93971-TC; G0378; J1650; J1953; J2060; J2405; J7030

== ENCOUNTER 2018-09-23 00:43 | Inpatient (IN) | payer MEDICARE ==
[~2018-09-23] VITALS: Ht 190.5 cm; Wt 117.9 kg
[~2018-09-23 00:43] MED LIST changes: -LEVE1000 PO; -MIRT30TA PO; +OXCA150T13 PO; -PANT40TA2 PO; -PHEN30TA40 PO
--- NOTE | 2018-09-23 01:00 | NUR ---
[id number] FROM [facility] C/O SI, STATES HE WANTS TO SMASH METAL PLATE IN HEAD AGAINST WALL. + AUDITORY HALLUCINATION, -HI. PT TRANSFERRED TO BED FROM [facility] AND TOLERATED WELL. PT PLACED ON MONITOR WITH VS WNL. PT COOPERATIVE. AWAITING MD GANDARA AND PSYCH EVAL.
[2018-09-23 01:27] LABS: BASOPHILS % (AUTO) 0.4 % (0.0-2.0); EOSINOPHILS % (AUTO) 1.5 % (0.0-6.0); HEMATOCRIT 40 % (39-51); HEMOGLOBIN 13.7 g/dL (13.5-17.5); LYMPHOCYTES # (AUTO) 0.8 /CMM (0.8-4.8); LYMPHOCYTES % (AUTO) 12.1 % (20.0-44.0); MEAN CORPUSCULAR HGB CONC 34 g/dl (31.0-36.0); MEAN CORPUSCULAR VOLUME 86 fL (80-96); MONOCYTES # (AUTO) 0.6 /CMM (0.1-1.30); MONOCYTES % (AUTO) 9.6 % (2.0-12.0); NEUTROPHILS % (AUTO) 76.4 % (43.0-81.0); PLATELET COUNT (AUTO) 196 /CMM (150-450); RED BLOOD CELL COUNT(AUTO) 4.66 MIL/uL (4.5-6.0); WHITE BLOOD COUNT (AUTO) 6.5 K/uL (4.3-11.0)
[2018-09-23 01:28] LABS: APPEARANCE,URINE CLEAR (CLEAR); BILIRUBIN,URINE NEGATIVE (NEGATIVE); BLOOD, URINE NEGATIVE Ery/uL (NEGATIVE); COLOR,URINE YELLOW (YELLOW); KETONES,URINE NEGATIVE (NEGATIVE); LEUKOCYTE ESTERASE ,URINE NEGATIVE (NEGATIVE); NITRITE, URINE NEGATIVE (NEGATIVE); PROTEIN,URINE NEGATIVE (NEGATIVE); UGLUCOSE NEGATIVE (NEGATIVE); UROBILINOGEN,URINE 0.2 EU/dL (0.2)
[2018-09-23 01:34] LABS: CALCIUM, SERUM 8.8 mg/dL (8.5-10.1); CARBON DIOXIDE 23 mmol/L (21-32); CHLORIDE 104 mmol/L (98-107); CREATININE 0.7 mg/dL (0.6-1.3); GLUCOSE 106 mg/dL (74-106); POTASSIUM 3.9 mmol/L (3.5-5.1); SODIUM SERUM 139 mmol/L (136-145); UREA NITROGEN, BLOOD 13 mg/dL (7-18)
[2018-09-23 01:40] LABS: ALANINE AMINOTRANSFERASE 25 U/L (12-78); ALBUMIN 3.9 g/dL (3.4-5.0); ALCOHOL, BLOOD < 3 mg/dL (0-0); ALKALINE PHOSPHATASE 121 U/L (46-116); ASPARTATE AMINOTRANSFERASE 12 U/L (15-37); BILIRUBIN,DIRECT 0.1 mg/dL (0.0-0.2); BILIRUBIN,TOTAL 0.4 mg/dL (0.2-1.0); TOTAL PROTEIN, SERUM 6.8 g/dL (6.4-8.2)
[2018-09-23 01:41] LABS: ACETAMINOPHEN 0 ug/ml (10-30); SALICYLATE 0.8 mg/dL (2.8-20.0)
--- NOTE | 2018-09-23 02:23 | NUR ---
NOTIFIED CHUCK SAHU HORSES OR MULES TEAMSTER FOR EVAL.
[2018-09-23] MEDS ORDERED: LEVETIRACETAM (250 MG) 250 MG TABLET PO ONE ×2 (03:00→03:22)
[2018-09-23] MEDS ORDERED: PHENOBARBITAL 30 MG TABLET PO ONE (03:00)
[2018-09-23] MEDS ORDERED: PHENOBARBITAL 30 MG TABLET ONE (03:22)
--- NOTE | 2018-09-23 05:26 | NUR ---
PT TRANSPORTED TO [facility] VIA WHEELCHAIR. PT IN STABLE CONDITION. TRANSFERRED CARE TO RN.
[2018-09-23 05:55] VITALS: BP 120/64
[2018-09-23] MEDS ORDERED: ACETAMINOPHEN 325 MG TABLET PO PRN (06:00)
[2018-09-23] MEDS ORDERED: MAGNESIUM HYDROXIDE 30 ML UDC PO PRN ×2 (06:00→13:00)
[2018-09-23] MEDS ORDERED: MAG HYDROX/AL HYDROX/SIMETH 30 ML UDC PO PRN ×2 (06:00→13:00)
--- NOTE | 2018-09-23 06:01 | NUR ---
ADMISSION NOTES ADMITTED THIS 53 Y/O MALE FROM [facility] ER, PATIENT INTIALLY FROM [facility] , PT. ADMITTED 5150 HOLD , PER HOLD COMPLAING OF SUICIDAL IDEATION WITH A PLAN TO RUN INTO TRAFFIC OR HIT IS HEAD, UPON FACE TO FACE ASSESSMENT PATIENT IS A&O X-3 UNCOOPERTIVE, DEPRESSED MOOD , FLAT AFFECT ,EASILY AGITATED , PT.IS POOR HISTORIAN, POOR INSIGHT ,POOR JUDGEMENT ,V/S WNL, NO ACUTE DISTRESS NOTED , MD AWARE AND NOTIFIED OF THE ADMISSION , PT. REFUSED SKIN ASSESSMENT ,ENCOURAGED EXPLAINED RISKS AND BENEFITS BUT STILL REFUSED, ENCOURAGED PT. VERBALIZED ANY FEELING CONCERN TO STAFF, ORIENT TO UNIT POLICY, WILL CONTINUE TO MONITOR FOR Q15, CONTRACT FOR SAFETY AND BEHAVIOR.
--- NOTE | 2018-09-23 07:11 | NUR ---
GPS RN NOTES: PT. REFUSED SKIN AND BODY ASSESSMENT , HOWEVER NURSE USUALLY CAN SEE REDNESS SWELLING LOWER LEG , BUT PT. REFUSED TO ASSESS AND PICTURE TAKEN, ENCOURAGED ,EXPLINED RISKS AND BENEFITS ,BUT PT. STILL REFUSED.
[2018-09-23 08:00] VITALS: BP 131/79
[2018-09-23] MEDS ORDERED: DOCU-141 PO (08:23)
[2018-09-23] MEDS ORDERED: SENN-168 PO (08:23)
[2018-09-23] MEDS ORDERED: NA P133E RC (08:23)
[2018-09-23] MEDS ORDERED: BISA10SU8 RC (08:23)
[2018-09-23] MEDS ORDERED: CLON0.1T PO (08:23)
[2018-09-23] MEDS ORDERED: MAG30ORA PO (08:23)
[2018-09-23] MEDS ORDERED: ACET-868 PO (08:23)
[2018-09-23] MEDS ORDERED: CALC-7 PO (08:23)
[2018-09-23] MEDS ORDERED: OXCA300T15 PO (08:23)
[2018-09-23] MEDS ORDERED: MAGN400O6 PO (08:23)
[2018-09-23] MEDS ORDERED: CLONIDINE HCL 0.1 MG TABLET PO PRN (13:00)
[2018-09-23] MEDS: OXCARBAZEPINE 150 MG TABLET PO SCH ×2 (14:14→21:05)
--- NOTE | 2018-09-23 15:02 | NUR ---
Psychosocial Note: I, Eleanor Walker MSW, attest to the patients previous psychosocial information dated on 09/07/18. Update On Events leading to Admission and Discharge Plan: Pt has returned to the geropsychiatric unit of the hospital within one month of his previous discharge date (09/10/18) from the unit to [facility]. Per hold, the pt came [facility] ([facility] Per hold, the pt endorsed suicidal ideation and stated that he had a plan to run into traffic. Pt had also stated that he is hearing voices in his head. He stated that the voices are telling him to kill himself by either banging his head too hard or running onto traffic. The pt appeared to be oriented x4 (time, place, self and situation). The pt appeared to be in a dysphoric mood and presented as irritable and agitated. Pt appeared to be ambulatory, disheveled and inappropriately dressed. SW will work with the pt, the pts family and the MD regarding appropriate discharge planning. SW will form a safe and proper discharge.
[2018-09-23 16:00] VITALS: BP 130/64
[2018-09-23] MEDS: PHENOBARBITAL 30 MG TABLET PO SCH (16:51)
[2018-09-23] MEDS: DOCUSATE SODIUM 100 MG CAPSULE PO SCH (16:51)
[2018-09-23] MEDS ORDERED: Medication Not On Formulary EA (Ipratropium/Albuterol Sulfate (Duoneb 2.5-0.5 Mg/3 Ml So IH SCH (17:00)
[2018-09-23 20:00] VITALS: BP 126/68
[2018-09-23] MEDS: TEMAZEPAM 7.5 MG CAPSULE PO PRN (21:05)
[2018-09-23] MEDS ORDERED: OLANZAPINE 10 MG TABLET PO SCH (22:00)
[2018-09-23] MEDS: SENNOSIDES 8.6 MG TABLET PO SCH (22:17)
[2018-09-23] MEDS: LORAZEPAM 0.5 MG TABLET PO PRN (22:33)
[2018-09-23] MEDS: HYDROCODONE/APAP 5/325MG 1 EACH TABLET PO PRN (23:06)
[2018-09-24 08:00] VITALS: BP 132/89
[2018-09-24 08:31] LABS: ALBUMIN 3.5 g/dL (3.4-5.0); BILIRUBIN,TOTAL 0.4 mg/dL (0.2-1.0); CALCIUM, SERUM 8.9 mg/dL (8.5-10.1); CREATININE 0.7 mg/dL (0.6-1.3); TOTAL PROTEIN, SERUM 6.4 g/dL (6.4-8.2)
[2018-09-24 08:39] LABS: THYROID STIMULATING HORMONE 1.354 uIU/mL (0.358-3.74)
[2018-09-24] MEDS: ASPIRIN 81 MG TAB.CHEW PO SCH (08:51)
[2018-09-24] MEDS: PANTOPRAZOLE 40 MG TABLET.DR PO SCH (08:51)
[2018-09-24] MEDS: DOCUSATE SODIUM 100 MG CAPSULE PO SCH ×2 (08:51→16:59)
[2018-09-24] MEDS: PHENOBARBITAL 30 MG TABLET PO SCH ×3 (08:51→16:59)
[2018-09-24] MEDS: FUROSEMIDE 20 MG TABLET PO SCH (08:51)
[2018-09-24] MEDS: DILTIAZEM HCL CD 240 MG PO SCH (08:52)
[2018-09-24] MEDS: OXCARBAZEPINE 150 MG TABLET PO SCH ×2 (08:52→21:28)
[2018-09-24] MEDS ORDERED: OLANZAPINE 5 MG TABLET PO SCH (09:00)
[2018-09-24] MEDS ORDERED: risperiDONE 1 MG TABLET PO SCH (09:00)
[2018-09-24] MEDS: risperiDONE 1 MG TABLET PO SCH ×2 (13:05→16:59)
[2018-09-24] MEDS: DIGOXIN 0.125 MG TABLET PO SCH (13:06)
--- NOTE | 2018-09-24 15:03 | NUR ---
PRETTY conducted a substance abuse intervention with the pt due to his history with benzoylmethylecgonine (cocaine).
[2018-09-24 16:00] VITALS: BP 160/78
[2018-09-24 20:00] VITALS: BP 126/86
[2018-09-24] MEDS: ALBUTEROL FS 2.5 MG/3 ML VIAL.NEB NEB SCH (20:44)
[2018-09-24] MEDS: IPRATROPIUM NEB FS 0.5 MG/2.5 ML AMPUL.NEB NEB SCH (20:44)
[2018-09-24] MEDS: ATORVASTATIN 10 MG TABLET PO SCH (21:28)
[2018-09-24] MEDS: SENNOSIDES 8.6 MG TABLET PO SCH (21:29)
[2018-09-24] MEDS: HYDROCODONE/APAP 5/325MG 1 EACH TABLET PO PRN (21:32)
[2018-09-24] MEDS: TEMAZEPAM 7.5 MG CAPSULE PO PRN (21:32)
[2018-09-24] MEDS ORDERED: OLANZAPINE 10 MG TABLET PO SCH (22:00)
--- NOTE | 2018-09-24 22:52 | NUR ---
TEMAZEPAM 7.5 MG GIVEN FOR SLEEP AT 2132.
--- NOTE | 2018-09-24 22:53 | NUR ---
NORCO 5/325 MG TAB PO GIVEN FOR BACK PAIN 4/10 ON PAIN SCALE AT 2132.
[2018-09-24] MEDS: LORAZEPAM 0.5 MG TABLET PO PRN (23:30)
--- NOTE | 2018-09-24 23:30 | NUR ---
GPS RN NOTE, PATIENT HAS A COMPLAINT OF FEELING ANXIOUS AND IS REQUESTING ATIVAN AT THIS TIME. PATIENT VITAL SIGNS ARE STABLE. GAVE ATIVAN 0.5MG PO Q6HR PRN ORDERED. WILL REASSESS FOR ANXIETY AND I WILL CONTINUE TO MONITOR THIS PATIENT.
[2018-09-25 08:00] VITALS: BP 117/88
[2018-09-25] MEDS: DOCUSATE SODIUM 100 MG CAPSULE PO SCH ×2 (08:33→16:09)
[2018-09-25] MEDS: OLANZAPINE 5 MG TABLET PO SCH (08:33)
[2018-09-25] MEDS: OXCARBAZEPINE 150 MG TABLET PO SCH ×2 (08:33→21:02)
[2018-09-25] MEDS: ASPIRIN 81 MG TAB.CHEW PO SCH (08:33)
[2018-09-25] MEDS: PANTOPRAZOLE 40 MG TABLET.DR PO SCH (08:34)
[2018-09-25] MEDS: FUROSEMIDE 20 MG TABLET PO SCH (08:34)
[2018-09-25] MEDS: PHENOBARBITAL 30 MG TABLET PO SCH ×3 (08:34→16:09)
[2018-09-25] MEDS: DILTIAZEM HCL CD 240 MG PO SCH (08:34)
[2018-09-25] MEDS: IPRATROPIUM NEB FS 0.5 MG/2.5 ML AMPUL.NEB NEB SCH ×2 (08:42→20:26)
[2018-09-25] MEDS: ALBUTEROL FS 2.5 MG/3 ML VIAL.NEB NEB SCH ×3 (08:42→20:26)
[2018-09-25] MEDS: DIGOXIN 0.125 MG TABLET PO SCH (12:18)
[2018-09-25] MEDS: risperiDONE 1 MG TABLET PO SCH ×3 (12:18→21:32)
[2018-09-25 16:00] VITALS: BP 128/82
[2018-09-25] MEDS: HYDROCODONE/APAP 5/325MG 1 EACH TABLET PO PRN ×2 (18:35→23:57)
--- NOTE | 2018-09-25 18:35 | NUR ---
GPS/RN-NOTES PATIENT REQUESTING NORCO FOR 01/19 LOWER BACK PAIN. NORCO 5/325MG P.O GIVEN PRN ORDER. WILL CONT.MONITORING FOR SAFETY.
[2018-09-25 20:00] VITALS: BP 128/80
--- NOTE | 2018-09-25 20:02 | NUR ---
REQUESTED FOR PEANUT BUTTER AND JELLY SANDWICH.
[2018-09-25] MEDS: TEMAZEPAM 7.5 MG CAPSULE PO PRN (21:02)
[2018-09-25] MEDS: SENNOSIDES 8.6 MG TABLET PO SCH (21:32)
[2018-09-25] MEDS: ATORVASTATIN 10 MG TABLET PO SCH (21:32)
[2018-09-25] MEDS: OLANZAPINE 10 MG TABLET PO SCH (21:34)
[2018-09-25] MEDS: LORAZEPAM 0.5 MG TABLET PO PRN (22:17)
--- NOTE | 2018-09-25 23:19 | NUR ---
WAS FOUND NAKED INSIDE HIS ROOM
[2018-09-26] MEDS: IPRATROPIUM NEB FS 0.5 MG/2.5 ML AMPUL.NEB NEB SCH ×2 (07:30→19:36)
[2018-09-26] MEDS: ALBUTEROL FS 2.5 MG/3 ML VIAL.NEB NEB SCH ×2 (07:30→19:36)
[2018-09-26 08:00] VITALS: BP 131/66
[2018-09-26] MEDS: ASPIRIN 81 MG TAB.CHEW PO SCH (08:22)
[2018-09-26] MEDS: risperiDONE 1 MG TABLET PO SCH ×4 (08:23→21:25)
[2018-09-26] MEDS: FUROSEMIDE 20 MG TABLET PO SCH (08:23)
[2018-09-26] MEDS: PHENOBARBITAL 30 MG TABLET PO SCH ×3 (08:24→16:01)
[2018-09-26] MEDS: PANTOPRAZOLE 40 MG TABLET.DR PO SCH (08:24)
[2018-09-26] MEDS: OLANZAPINE 5 MG TABLET PO SCH (08:24)
[2018-09-26] MEDS: DILTIAZEM HCL CD 240 MG PO SCH (08:24)
[2018-09-26] MEDS: DOCUSATE SODIUM 100 MG CAPSULE PO SCH ×2 (08:25→16:01)
[2018-09-26] MEDS: OXCARBAZEPINE 150 MG TABLET PO SCH ×2 (08:25→21:25)
[2018-09-26] MEDS: DIGOXIN 0.125 MG TABLET PO SCH (12:11)
[2018-09-26 16:00] VITALS: BP 151/95
[2018-09-26] MEDS: HYDROCODONE/APAP 5/325MG 1 EACH TABLET PO PRN (19:22)
[2018-09-26 19:27] VITALS: BP 140/108
[2018-09-26] MEDS: ATORVASTATIN 10 MG TABLET PO SCH (21:24)
[2018-09-26] MEDS: OLANZAPINE 10 MG TABLET PO SCH (21:25)
[2018-09-26] MEDS: SENNOSIDES 8.6 MG TABLET PO SCH (21:25)
[2018-09-27] MEDS: HYDROCODONE/APAP 5/325MG 1 EACH TABLET PO PRN ×3 (00:33→22:35)
[2018-09-27 08:00] VITALS: BP 114/79
[2018-09-27] MEDS: DOCUSATE SODIUM 100 MG CAPSULE PO SCH ×2 (08:32→16:13)
[2018-09-27] MEDS: FUROSEMIDE 20 MG TABLET PO SCH (08:32)
[2018-09-27] MEDS: ASPIRIN 81 MG TAB.CHEW PO SCH (08:33)
[2018-09-27] MEDS: OLANZAPINE 5 MG TABLET PO SCH (08:34)
[2018-09-27] MEDS: PANTOPRAZOLE 40 MG TABLET.DR PO SCH (08:34)
[2018-09-27] MEDS: OXCARBAZEPINE 150 MG TABLET PO SCH ×2 (08:35→21:17)
[2018-09-27] MEDS: risperiDONE 1 MG TABLET PO SCH ×3 (08:35→16:13)
[2018-09-27] MEDS: DILTIAZEM HCL CD 240 MG PO SCH (08:35)
[2018-09-27] MEDS: PHENOBARBITAL 30 MG TABLET PO SCH ×3 (08:36→16:13)
[2018-09-27] MEDS: ALBUTEROL FS 2.5 MG/3 ML VIAL.NEB NEB SCH ×2 (10:10→20:38)
[2018-09-27] MEDS: IPRATROPIUM NEB FS 0.5 MG/2.5 ML AMPUL.NEB NEB SCH ×2 (10:10→20:38)
--- NOTE | 2018-09-27 10:15 | NUR ---
PRETTY contacted JAQUAN ([phone]), weatherization coordinator at [facility], and inquired about whether or not the pt can return to the facility. He stated that it was dependent on the clearance upon discharge.
[2018-09-27] MEDS: DIGOXIN 0.125 MG TABLET PO SCH (13:06)
[2018-09-27 16:00] VITALS: BP 142/87
[2018-09-27 19:37] VITALS: BP 136/98
[2018-09-27] MEDS: ATORVASTATIN 10 MG TABLET PO SCH (21:18)
[2018-09-27] MEDS: SENNOSIDES 8.6 MG TABLET PO SCH (21:19)
--- NOTE | 2018-09-27 21:45 | NUR ---
GPS RN NOTES: PATIENT WAS ORDERED EKG BY DR. TEJADA, RESULT RELAYED TO HER.SHE GAVE INSTRUCTIONS TO DC INVEGA MEDICATION SCHEDULED TO BE GIVEN TOMORROW AND TO INFORM MEDICAL DR OF THE RESULT. PAGED YUN EID AND SHE CALLED BACK RIGHT AWAY. NO FURTHER ORDERS WERE GIVEN OF THIS TIME. WILL CONTINUE TO MONITOR PATIENT. WILL ENDORSE TO DAY SHIFT NURSE.
[2018-09-27] MEDS ORDERED: OLANZAPINE 10 MG TABLET PO SCH (22:00)
[2018-09-27] MEDS ORDERED: risperiDONE 1 MG TABLET PO SCH (22:00)
[2018-09-28] MEDS: TEMAZEPAM 7.5 MG CAPSULE PO PRN (02:04)
[2018-09-28 08:00] VITALS: BP 133/80
[2018-09-28] MEDS: IPRATROPIUM NEB FS 0.5 MG/2.5 ML AMPUL.NEB NEB SCH ×2 (08:35→20:07)
[2018-09-28] MEDS: ALBUTEROL FS 2.5 MG/3 ML VIAL.NEB NEB SCH ×2 (08:35→20:07)
[2018-09-28] MEDS ORDERED: PALIPERIDONE PALMITATE 117 MG XX ONE (09:00)
[2018-09-28] MEDS ORDERED: MISCELLANEOUS MED 1 EA EA XX ONE (09:00)
[2018-09-28] MEDS: DILTIAZEM HCL CD 240 MG PO SCH (09:05)
[2018-09-28] MEDS: DOCUSATE SODIUM 100 MG CAPSULE PO SCH ×2 (09:05→18:01)
[2018-09-28] MEDS: ASPIRIN EC 325 MG TABLET.DR PO SCH (09:05)
[2018-09-28] MEDS: OXCARBAZEPINE 150 MG TABLET PO SCH ×2 (09:05→21:23)
[2018-09-28] MEDS: PANTOPRAZOLE 40 MG TABLET.DR PO SCH (09:05)
[2018-09-28] MEDS: risperiDONE 1 MG TABLET PO SCH ×4 (09:05→21:23)
[2018-09-28] MEDS: PHENOBARBITAL 30 MG TABLET PO SCH ×3 (09:05→18:02)
[2018-09-28] MEDS: FUROSEMIDE 20 MG TABLET PO SCH (09:05)
--- NOTE | 2018-09-28 11:35 | NUR ---
WOUND CARE CONSULT: PT REFUSED SKIN ASSESSMENT. PT CONTINENT AND AMBULATORY PER NURSING STAFF. WILL SEE PT PT CONDITION PERMITS.
[2018-09-28] MEDS ORDERED: Z GUARD REMEDY 2 OZ OINT TP PRN (12:00)
[2018-09-28] MEDS: DIGOXIN 0.125 MG TABLET PO SCH (15:39)
--- NOTE | 2018-09-28 15:41 | NUR ---
GPS/RN-NOTES PATIENT JUST TOOK ALL 1300 MEDICATIONS DUE TO PATIENT JUST AWAKE. CHARGE NURSE AWARE.
[2018-09-28] MEDS: HYDROCODONE/APAP 5/325MG 1 EACH TABLET PO PRN ×2 (15:53→22:33)
[2018-09-28 16:00] VITALS: BP 127/56
[2018-09-28 19:59] VITALS: BP 132/92
[2018-09-28] MEDS: SENNOSIDES 8.6 MG TABLET PO SCH (21:22)
[2018-09-28] MEDS: ATORVASTATIN 10 MG TABLET PO SCH (21:23)
[2018-09-29] MEDS: TEMAZEPAM 7.5 MG CAPSULE PO PRN ×2 (01:12→21:44)
[2018-09-29] MEDS: ALBUTEROL FS 2.5 MG/3 ML VIAL.NEB NEB SCH ×2 (07:30→19:30)
[2018-09-29] MEDS: IPRATROPIUM NEB FS 0.5 MG/2.5 ML AMPUL.NEB NEB SCH ×2 (07:30→19:30)
[2018-09-29 08:00] VITALS: BP 127/78
[2018-09-29] MEDS: OXCARBAZEPINE 150 MG TABLET PO SCH ×2 (08:53→21:44)
[2018-09-29] MEDS: PHENOBARBITAL 30 MG TABLET PO SCH ×3 (08:53→16:36)
[2018-09-29] MEDS: PANTOPRAZOLE 40 MG TABLET.DR PO SCH (08:54)
[2018-09-29] MEDS: ASPIRIN EC 325 MG TABLET.DR PO SCH (08:54)
[2018-09-29] MEDS: risperiDONE 1 MG TABLET PO SCH ×4 (08:55→21:44)
[2018-09-29] MEDS: DOCUSATE SODIUM 100 MG CAPSULE PO SCH ×2 (08:58→16:42)
[2018-09-29] MEDS: DILTIAZEM HCL CD 180 MG PO SCH (08:58)
[2018-09-29] MEDS: FUROSEMIDE 20 MG TABLET PO SCH (09:00)
[2018-09-29] MEDS: DIGOXIN 0.125 MG TABLET PO SCH (12:15)
[2018-09-29 16:00] VITALS: BP 126/80
[2018-09-29 19:54] VITALS: BP 138/72
[2018-09-29] MEDS: ATORVASTATIN 10 MG TABLET PO SCH (21:44)
[2018-09-29] MEDS: SENNOSIDES 8.6 MG TABLET PO SCH (21:44)
[2018-09-29] MEDS: HYDROCODONE/APAP 5/325MG 1 EACH TABLET PO PRN (21:45)
[2018-09-30 08:00] VITALS: BP 122/68
[2018-09-30] MEDS: ALBUTEROL FS 2.5 MG/3 ML VIAL.NEB NEB SCH ×2 (08:58→20:29)
[2018-09-30] MEDS: IPRATROPIUM NEB FS 0.5 MG/2.5 ML AMPUL.NEB NEB SCH ×2 (08:59→20:29)
[2018-09-30] MEDS: PHENOBARBITAL 30 MG TABLET PO SCH ×3 (09:16→17:05)
[2018-09-30] MEDS: FUROSEMIDE 20 MG TABLET PO SCH (09:16)
[2018-09-30] MEDS: OXCARBAZEPINE 150 MG TABLET PO SCH ×2 (09:16→21:00)
[2018-09-30] MEDS: DILTIAZEM HCL CD 180 MG PO SCH (09:17)
[2018-09-30] MEDS: ASPIRIN EC 325 MG TABLET.DR PO SCH (09:17)
[2018-09-30] MEDS: risperiDONE 1 MG TABLET PO SCH ×4 (09:17→21:00)
[2018-09-30] MEDS: PANTOPRAZOLE 40 MG TABLET.DR PO SCH (09:17)
[2018-09-30] MEDS: DOCUSATE SODIUM 100 MG CAPSULE PO SCH ×3 (09:17→17:05)
--- NOTE | 2018-09-30 13:10 | NUR ---
SW contacted JAQUAN ([phone]), recovery coordinator at [facility], and informed him that the pt will be discharged the following day and that the SW will fax over a clearance the next morning.
[2018-09-30] MEDS: DIGOXIN 0.125 MG TABLET PO SCH (13:14)
[2018-09-30 16:00] VITALS: BP 125/72
[2018-09-30] MEDS: HYDROCODONE/APAP 5/325MG 1 EACH TABLET PO PRN (18:49)
--- NOTE | 2018-09-30 18:49 | NUR ---
RN NOTES ADMINISTERED NARCO 5/325 MG PO PRN FOR LOWER BACK PAIN PER PATIENT REQUEST, V/S TAKEN BP125/72, P-80, CONTINUED MONITORING.
[2018-09-30 20:00] VITALS: BP 113/88
[2018-09-30] MEDS: SENNOSIDES 8.6 MG TABLET PO SCH (21:00)
[2018-09-30] MEDS: ATORVASTATIN 10 MG TABLET PO SCH (21:00)
[2018-09-30] MEDS: TEMAZEPAM 7.5 MG CAPSULE PO PRN (21:01)
[2018-09-30] MEDS: LORAZEPAM 0.5 MG TABLET PO PRN (22:13)
[2018-10-01] MEDS: HYDROCODONE/APAP 5/325MG 1 EACH TABLET PO PRN (00:35)
[2018-10-01 08:00] VITALS: BP 131/73
[2018-10-01] MEDS: ALBUTEROL FS 2.5 MG/3 ML VIAL.NEB NEB SCH (08:01)
[2018-10-01] MEDS: IPRATROPIUM NEB FS 0.5 MG/2.5 ML AMPUL.NEB NEB SCH (08:01)
[2018-10-01] MEDS: ASPIRIN EC 325 MG TABLET.DR PO SCH (09:12)
[2018-10-01 09:13] VITALS: BP 131/73
[2018-10-01] MEDS: PANTOPRAZOLE 40 MG TABLET.DR PO SCH (09:13)
[2018-10-01] MEDS: OXCARBAZEPINE 150 MG TABLET PO SCH (09:13)
[2018-10-01] MEDS: PHENOBARBITAL 30 MG TABLET PO SCH ×2 (09:13→13:11)
[2018-10-01] MEDS: DILTIAZEM HCL CD 180 MG PO SCH (09:13)
[2018-10-01] MEDS: FUROSEMIDE 20 MG TABLET PO SCH (09:13)
[2018-10-01] MEDS: DOCUSATE SODIUM 100 MG CAPSULE PO SCH (09:13)
[2018-10-01] MEDS: risperiDONE 1 MG TABLET PO SCH ×2 (09:15→13:11)
--- NOTE | 2018-10-01 09:55 | NUR ---
DR. TEJADA GAVE AND ORDER TO D/C HOLD AND D/C TO [facility], TO CONTINUE SAME MEDS INCLUDING PRN AND TO FOLLOW UP WITH PSYCH AND MEDICAL DOCTORS.
--- NOTE | 2018-10-01 11:08 | NUR ---
PRETTY faxed a clearance to [facility] with attention to CJ to the fax number: [phone].
[2018-10-01] MEDS: DIGOXIN 0.125 MG TABLET PO SCH (13:11)
--- NOTE | 2018-10-01 13:15 | NUR ---
GPS/RN pt discharged to [facility] ([facility]) ([phone]) report given to Solange GANNON . medically cleared by Ida HAILE. No si or hi at the time of d/c.clothes provided from donation supply.wrist band removed. VSS. no si or hi reported at the time of d/c. pt refused sign the d/c paperwork at the time of d/c
--- NOTE | 2018-10-01 14:29 | NUR ---
Discharge Note: Pt was discharged to [facility] ([facility]) located at [address] [place] [address] ([phone]). Pt was transported via [facility] (Trip #[id number]) at 1PM. There was no one in the pts support system to contact for this pts discharge. Upon discharge, the pt appeared to be in a euthymic mood and presented with a calm affect. The pt denied both suicidal and homicidal ideation as well as auditory and visual hallucinations. Pt was provided with three substance abuse referrals at the time of discharge. The pt will be under the care of his psychiatrist, Dr. Olga Cunningham, located at [address] [address], [place] [address]; and home health aide, Dr. All Tellez, located at [address] [place] [address]; . Pt will continue to address his substance use with this treatment team.
--- NOTE | 2018-10-15 11:04 | NUR ---
15 Day Substance Abuse Follow Up: Pt was readmitted to [facility] Geriatric Psych Unit within one week of his discharge to [facility] ([facility]).
== END 2018-10-01 13:15 | DRG 885 ==
LOC: ER 00:46 → GPS 04:39
PROVIDERS: ADMIT Psychiatry & Neurology Psychosomatic Medicine; ATTEND Psychiatry & Neurology Psychosomatic Medicine
DX: F25.9 Schizoaffective disorder, unspecified (principal); I11.0 Hypertensive heart disease with heart failure; R45.851 Suicidal ideations; E78.5 Hyperlipidemia, unspecified; I25.10 Atherosclerotic heart disease of native coronary artery without angina pectoris; I48.2 Chronic atrial fibrillation; G40.909 Epilepsy, unspecified, not intractable, without status epilepticus; I50.9 Heart failure, unspecified; J44.9 Chronic obstructive pulmonary disease, unspecified; K21.9 Gastro-esophageal reflux disease without esophagitis; F32.9 Major depressive disorder, single episode, unspecified
CPT/HCPCS: 36415; 80048-TC; 80053-TC; 80061-TC; 80076-TC; 80305; 81000-TC; 84443-TC; 85025-TC; 87081-TC; 94799-TC; G0480

== ENCOUNTER 2018-10-05 01:42 | Inpatient (IN) | payer MEDICARE ==
[~2018-10-05] VITALS: Ht 188 cm; Wt 136.1 kg
[~2018-10-05 01:42] MED LIST changes: +BISA10SU8 RC; +CALC-7 PO; +CLON0.1T PO; +DOCU-141 PO; -LORA-259 PO; +MAG30ORA PO; +MAGN400O6 PO; -MIRT15TA PO; -MUPI15CR TP; +NA P133E RC; -OLAN5TAB3 PO; -OXCA150T13 PO; +OXCA300T15 PO; +SENN-168 PO; -ZOLP10TA2 PO
--- NOTE | 2018-10-05 02:09 | NUR ---
[employer] AND PD FROM SNF C/C HAVING SUICIDAL IDEATIONS W/ PLAN TO GET INFRONT OF TRAFFIC. DENIES HI. PER PD, PT WAS REQUESTING FOR PAIN MEDICATIONS IN THE FACILITY, WHEN HE DID NOT RECEIVE PAIN MEDICATIONS HE STATED HE WOULD "ROLL HIMSELF INTO TRAFFIC". PT IS AAOX4. AMBULATORY WITH STEADY GAIT NOTED. RR EVEN AND UNLABORED. PT PLACED ON MONITOR AND POX. PT SAFETY AND COMFORT MEASURES IN PLACE. SI PRECAUTIONS IN PLACE. COMPLETED PT EVAL. ONE TO ONE SITTER BEDSIDE WITH PT. PD LEFT PT'S BEDSIDE.
[2018-10-05 02:23] LABS: APPEARANCE,URINE Clear (CLEAR); BILIRUBIN,URINE Negative (NEGATIVE); BLOOD, URINE Negative Ery/uL (NEGATIVE); COLOR,URINE Amber (YELLOW); KETONES,URINE Negative (NEGATIVE); LEUKOCYTE ESTERASE ,URINE Negative (NEGATIVE); NITRITE, URINE Negative (NEGATIVE); PH,URINE 6.5 (5.0-8.0); PROTEIN,URINE Negative (NEGATIVE); UGLUCOSE Negative (NEGATIVE)
[2018-10-05 02:26] LABS: CALCIUM, SERUM 8.7 mg/dL (8.5-10.1); CARBON DIOXIDE 28 mmol/L (21-32); CHLORIDE 102 mmol/L (98-107); CREATININE 0.8 mg/dL (0.6-1.3); GLUCOSE 96 mg/dL (74-106); POTASSIUM 3.6 mmol/L (3.5-5.1); SODIUM SERUM 136 mmol/L (136-145); UREA NITROGEN, BLOOD 16 mg/dL (7-18)
[2018-10-05 02:27] LABS: BASOPHILS % (AUTO) 0.4 % (0.0-2.0); EOSINOPHILS % (AUTO) 1.2 % (0.0-6.0); HEMATOCRIT 42 % (39-51); HEMOGLOBIN 14.3 g/dL (13.5-17.5); LYMPHOCYTES # (AUTO) 0.7 /CMM (0.8-4.8); LYMPHOCYTES % (AUTO) 10.1 % (20.0-44.0); MEAN CORPUSCULAR HGB CONC 34 g/dl (31.0-36.0); MEAN CORPUSCULAR VOLUME 86 fL (80-96); MONOCYTES # (AUTO) 0.6 /CMM (0.1-1.30); MONOCYTES % (AUTO) 8.6 % (2.0-12.0); NEUTROPHILS # (AUTO) 5.8 /CMM (1.8-8.9); NEUTROPHILS % (AUTO) 79.7 % (43.0-81.0); PLATELET COUNT (AUTO) 190 /CMM (150-450); RED BLOOD CELL COUNT(AUTO) 4.87 MIL/uL (4.5-6.0); WHITE BLOOD COUNT (AUTO) 7.3 K/uL (4.3-11.0)
[2018-10-05] MEDS ORDERED: LEVETIRACETAM (250 MG) 250 MG TABLET PO ONE ×2 (02:30→03:05)
[2018-10-05] MEDS ORDERED: PHENOBARBITAL 30 MG TABLET PO ONE (02:30)
[2018-10-05 02:33] LABS: ACETAMINOPHEN 0 ug/ml (10-30); ALANINE AMINOTRANSFERASE 31 U/L (12-78); ALCOHOL, BLOOD < 3 mg/dL (0-0); ALKALINE PHOSPHATASE 157 U/L (46-116); ASPARTATE AMINOTRANSFERASE 18 U/L (15-37); BILIRUBIN,DIRECT 0.1 mg/dL (0.0-0.2); BILIRUBIN,TOTAL 0.4 mg/dL (0.2-1.0); SALICYLATE 0.7 mg/dL (2.8-20.0); TOTAL PROTEIN, SERUM 7.3 g/dL (6.4-8.2)
[2018-10-05 03:38] LABS: BACTERIA,URINE Rare /HPF (None Seen); RBC,URINE 0-2 /HPF (0-2); SQUAMOUS EPITHELIAL CELL,UR Rare /HPF (None Seen); WBC,URINE 0-2 /HPF (0-3)
--- NOTE | 2018-10-05 05:07 | NUR ---
REPORT GIVEN TO ANTHONY MILLS FOR MARTINA
[2018-10-05] MEDS ORDERED: TEMAZEPAM 7.5 MG CAPSULE PO PRN (05:30)
[2018-10-05] MEDS ORDERED: MAGNESIUM HYDROXIDE 30 ML UDC PO PRN (05:30)
[2018-10-05] MEDS ORDERED: ACETAMINOPHEN 325 MG TABLET PO PRN (05:30)
[2018-10-05] MEDS ORDERED: MAG HYDROX/AL HYDROX/SIMETH 30 ML UDC PO PRN (05:30)
--- NOTE | 2018-10-05 06:27 | NUR ---
INTIALLY NOTES: ADMITTED THIS 53 Y/O MALE FROM [facility] ER, PATIENT INTIALLY FROM SNF , PT. ADMITTED 5150 HOLD , PER HOLD COMPLAING OF SUICIDAL IDEATION WITH A PLAN TO OVERDOSE ON HIS PAIN MEDICATION, PT. HAS HISTORY OF SI AND BECOMING VERBALLY AGGRESSIVE WITH LOADER SEMICONDUCTOR DIES UPON FACE TO FACE ASSESSMENT PATIENT IS A&O X-3 UNCOOPERTIVE, DEPRESSED MOOD , FLAT AFFECT ,EASILY AGITATED , PT.IS POOR HISTORIAN, POOR INSIGHT ,POOR JUDGEMENT ,V/S WNL, NO ACUTE DISTRESS NOTED , MD AWARE AND NOTIFIED OF THE ADMISSION ,ENCOURAGED EXPLAINED RISKS AND BENEFITS BUT STILL REFUSED, ENCOURAGED PT. VERBALIZED ANY FEELING CONCERN TO STAFF, ORIENT TO UNIT POLICY, WILL CONTINUE TO MONITOR FOR Q15, CONTRACT FOR SAFETY AND BEHAVIOR.
[2018-10-05 06:55] VITALS: BP 138/75
--- NOTE | 2018-10-05 07:30 | NUR ---
TOMATO GRADER NOTE:ADMITTED A 53 Y/O MALE ON 5150 HOLD FOR DTS ,PER 5150 HOLD PATIENT VERBALLY AGGRESSIVE WITH CAREGIVER AND STATED "I AM DEPRESSED AND JUST WANT TO KILL MYSELF ".ON 1:1 ASSESSMENT PATIENT ALERT ,ORIENTED X2 ,STATED "I HEAR VOICES TELLING ME BAD THINGS ".PATIENT RESPONDING TO INTERNAL STIMULI ,PARANOID AND SUSPICIOUS MOOD DEPRESSED AND FLAT AFFECT REFUSED SKIN ASSESSMENT .PATIENT HAS HX OF SEIZURE D/O,HYPERLIPIDEMIA ,CAD,COPD,CHF,GERD AND CHOLECYSTECTOMY.RAGHAVENDRA HARDWICK NP AND NOTIFIED OF ADMISSION .PATIENT'S RIGHT HAND BOOK GIVEN AND EXPLAINED TO PATIENT ABLE TO VERBALIZE UNDERSTANDING ,START PATIENT ON [id number] SAFETY CHECK .
[2018-10-05 08:00] VITALS: BP 113/73
[2018-10-05 08:06] LABS: CREATININE 0.7 mg/dL (0.6-1.3)
--- NOTE | 2018-10-05 10:27 | NUR ---
Psychosocial Note: I, Eleanor Walker MSW, attest to the patients previous psychosocial information dated on 09/23/18. Update On Events leading to Admission and Discharge Plan: Pt has returned to the geropsychiatric unit of the hospital within one week of his previous discharge date (10/01/18) from the unit to [facility] Medical Floor. Per hold, the pt came [facility] ([facility]). Per hold, the pt endorsed suicidal ideation and stated that he had a plan to overdose on his medications. Pt had also stated that he is hearing voices in his head. He stated that the voices are telling him to kill himself. The pt appeared to be oriented x4 (time, place, self and situation). The pt appeared to be in a dysphoric mood and presented as irritable and agitated. Pt was fatigued and was unable to hold a proper conversation and was unable to keep his eyes open. Pt appeared to be ambulatory. Pt appeared to be well groomed and appropriately dressed. SW will work with the pt, the pts family and the MD regarding appropriate discharge planning. SW will form a safe and proper discharge.
--- NOTE | 2018-10-05 10:46 | NUR ---
SW called the pt's mother, Abi Denton ([phone]), and received a busy dial tone so the SW was unable to leave a message. Per pt, the pt's mother is , but the SW cannot verify that.
[2018-10-05] MEDS: LITHIUM CARBONATE 150 MG CAPSULE PO SCH ×2 (11:00→20:53)
[2018-10-05] MEDS ORDERED: PHEN30TA40 PO (11:21)
[2018-10-05] MEDS ORDERED: DILT360T13 PO (11:21)
[2018-10-05] MEDS ORDERED: RISP1TAB7 PO (11:21)
[2018-10-05] MEDS ORDERED: RISP2TAB5 PO (11:21)
[2018-10-05] MEDS ORDERED: ASPI-992 PO (11:21)
[2018-10-05] MEDS ORDERED: ACET-73 PO (11:21)
[2018-10-05] MEDS ORDERED: TEMA15CA5 PO (11:21)
[2018-10-05] MEDS ORDERED: LORA-259 PO (11:21)
[2018-10-05] MEDS: risperiDONE 1 MG TABLET PO SCH ×3 (13:49→20:53)
[2018-10-05] MEDS: BENZTROPINE MESYLATE (1 MG) 1 MG TABLET PO SCH ×2 (13:49→17:22)
--- NOTE | 2018-10-05 15:58 | NUR ---
Pt's psychiatrist, Dr. Cunningham, and the SW went into the pt's room to discuss his discharge plan. Pt was informed that he would be sent to a [facility] facility in the [place] area and he accepted the placement option. SW will send a referral when it is appropriate.
[2018-10-05 16:00] VITALS: BP 159/71
[2018-10-05] MEDS ORDERED: BISACODYL SUPP (10 MG) 10 MG/SUPP.RECT SUPP.RECT RC PRN (19:30)
[2018-10-05] MEDS ORDERED: CLONIDINE HCL 0.1 MG TABLET PO PRN (19:30)
[2018-10-05] MEDS ORDERED: NA PHOS,M-B/NA PHOS,DI-BA 1 EA ENEMA RC PRN (19:30)
[2018-10-05 20:19] VITALS: BP 159/98
[2018-10-05] MEDS: ATORVASTATIN 10 MG TABLET PO SCH (22:05)
[2018-10-05] MEDS: HYDROCODONE/APAP 5/325MG 1 EACH TABLET PO PRN (22:54)
[2018-10-05] MEDS: LORAZEPAM 0.5 MG TABLET PO PRN (22:54)
[2018-10-05] MEDS: IPRATROPIUM NEB FS 0.5 MG/2.5 ML AMPUL.NEB NEB PRN (23:39)
[2018-10-05] MEDS: ALBUTEROL FS 2.5 MG/3 ML VIAL.NEB NEB PRN (23:39)
[2018-10-05] MEDS: PHENOBARBITAL 30 MG TABLET PO SCH (23:41)
[2018-10-06 08:00] VITALS: BP 129/96
[2018-10-06] MEDS ORDERED: PHENOBARBITAL 30 MG TABLET PO SCH (09:00)
[2018-10-06] MEDS: BENZTROPINE MESYLATE (1 MG) 1 MG TABLET PO SCH ×3 (09:13→17:51)
[2018-10-06] MEDS: LITHIUM CARBONATE 150 MG CAPSULE PO SCH ×3 (09:13→17:51)
[2018-10-06] MEDS: ASPIRIN 325 MG TABLET PO SCH (09:13)
[2018-10-06] MEDS: PHENOBARBITAL 30 MG TABLET PO SCH ×3 (09:14→17:51)
[2018-10-06] MEDS: DILTIAZEM HCL CD 180 MG PO SCH (09:14)
[2018-10-06] MEDS: PANTOPRAZOLE 40 MG TABLET.DR PO SCH (09:15)
[2018-10-06] MEDS: FUROSEMIDE 20 MG TABLET PO SCH (09:15)
[2018-10-06] MEDS: risperiDONE 1 MG TABLET PO SCH ×4 (09:15→21:23)
[2018-10-06 11:26] LABS: CALCIUM, SERUM 8.7 mg/dL (8.5-10.1); CREATININE 0.7 mg/dL (0.6-1.3); MAGNESIUM 1.9 mg/dL (1.8-2.4); PHOSPHORUS 3.7 mg/dL (2.5-4.9); POTASSIUM 4.1 mmol/L (3.5-5.1)
[2018-10-06 11:32] LABS: DIGOXIN 0.19 ng/mL (0.90-2.00)
[2018-10-06] MEDS: DIGOXIN 0.125 MG TABLET PO SCH (13:19)
[2018-10-06 16:00] VITALS: BP 131/56
[2018-10-06 20:31] VITALS: BP 156/94
[2018-10-06] MEDS: ATORVASTATIN 10 MG TABLET PO SCH (21:23)
[2018-10-06] MEDS: LORAZEPAM 0.5 MG TABLET PO PRN (21:23)
[2018-10-06] MEDS: HYDROCODONE/APAP 5/325MG 1 EACH TABLET PO PRN (22:01)
[2018-10-06] MEDS: TEMAZEPAM 7.5 MG CAPSULE PO PRN (22:17)
[2018-10-07] MEDS: ALBUTEROL FS 2.5 MG/3 ML VIAL.NEB NEB PRN (01:30)
[2018-10-07] MEDS: IPRATROPIUM NEB FS 0.5 MG/2.5 ML AMPUL.NEB NEB PRN (01:30)
[2018-10-07] MEDS: HYDROCODONE/APAP 5/325MG 1 EACH TABLET PO PRN ×3 (03:46→21:07)
--- NOTE | 2018-10-07 03:46 | NUR ---
GPS RN NOTE, PATIENT HAS A COMPLAINT OF LOWER BACK PAIN AT 5 OUT 10 ON THE PAIN SCALE AND IS REQUESTING NORCO AT THIS TIME. PATIENT VITAL SIGNS ARE STABLE. GAVE NORCO 5-325 1 TAB PO Q4 HR PRN ORDERED. WILL REASSESS FOR PAIN AND I WILL CONTINUE TO MONITOR THIS PATIENT.
[2018-10-07] MEDS: LORAZEPAM 0.5 MG TABLET PO PRN ×2 (04:25→22:16)
[2018-10-07 08:00] VITALS: BP 123/71
[2018-10-07] MEDS: risperiDONE 1 MG TABLET PO SCH ×4 (08:18→21:05)
[2018-10-07] MEDS: PHENOBARBITAL 30 MG TABLET PO SCH ×3 (08:18→16:46)
[2018-10-07] MEDS: ASPIRIN 325 MG TABLET PO SCH (08:18)
[2018-10-07] MEDS: PANTOPRAZOLE 40 MG TABLET.DR PO SCH (08:18)
[2018-10-07] MEDS: FUROSEMIDE 20 MG TABLET PO SCH (08:18)
[2018-10-07] MEDS: BENZTROPINE MESYLATE (1 MG) 1 MG TABLET PO SCH ×3 (08:19→16:46)
[2018-10-07] MEDS: DILTIAZEM HCL CD 180 MG PO SCH (08:19)
[2018-10-07] MEDS: LITHIUM CARBONATE 150 MG CAPSULE PO SCH ×3 (08:19→16:46)
[2018-10-07] MEDS: DIGOXIN 0.125 MG TABLET PO SCH (12:46)
--- NOTE | 2018-10-07 14:28 | NUR ---
ECTORCO: CALLED RT TO FOLLOW UP EKG.
[2018-10-07] MEDS ORDERED: ONDANSETRON 4 MG TAB.RAPDIS SL PRN (15:00)
--- NOTE | 2018-10-07 15:05 | NUR ---
GPS/RN-NOTES PATIENT C/O R/10RIGHT LEG AND REQUESTING NORCO. NORCO 5/325MG 1 TAB. P-.O GIVEN PRN ORDER. WILL CONT. MONITORING FOR SAFETY.
--- NOTE | 2018-10-07 15:15 | NUR ---
GPS/RN-NOTES DNP RONEN IN THE UNIT AND MADE AWARE OF PATIENT POLST DOCUMENT AND CONFIRM THAT PATIENT CODE STATUS OF DNR. NOTED AND CARRIED OUT.
[2018-10-07 16:00] VITALS: BP 162/90
[2018-10-07 20:00] VITALS: BP 154/88
[2018-10-07] MEDS: ATORVASTATIN 10 MG TABLET PO SCH (21:06)
[2018-10-07] MEDS: TEMAZEPAM 7.5 MG CAPSULE PO PRN (21:07)
[2018-10-08] MEDS: HYDROCODONE/APAP 5/325MG 1 EACH TABLET PO PRN ×2 (01:13→23:03)
[2018-10-08 08:00] VITALS: BP 157/90
[2018-10-08] MEDS: BENZTROPINE MESYLATE (1 MG) 1 MG TABLET PO SCH ×3 (08:48→17:37)
[2018-10-08] MEDS: ASPIRIN 325 MG TABLET PO SCH (08:48)
[2018-10-08] MEDS: PANTOPRAZOLE 40 MG TABLET.DR PO SCH (08:48)
[2018-10-08] MEDS: FUROSEMIDE 20 MG TABLET PO SCH (08:49)
[2018-10-08] MEDS: risperiDONE 1 MG TABLET PO SCH ×4 (08:49→21:13)
[2018-10-08] MEDS: LITHIUM CARBONATE 150 MG CAPSULE PO SCH ×3 (08:49→17:37)
[2018-10-08] MEDS: PHENOBARBITAL 30 MG TABLET PO SCH ×3 (08:49→17:37)
[2018-10-08] MEDS: DILTIAZEM HCL CD 180 MG PO SCH (08:51)
--- NOTE | 2018-10-08 12:28 | NUR ---
SW contacted CJ from [facility] ([phone]) and confirmed that the pt can return to their facility.
[2018-10-08] MEDS: DIGOXIN 0.125 MG TABLET PO SCH (12:53)
[2018-10-08 16:00] VITALS: BP 119/75
[2018-10-08 20:00] VITALS: BP 109/74
[2018-10-08] MEDS: ATORVASTATIN 10 MG TABLET PO SCH (21:13)
[2018-10-09] MEDS: TEMAZEPAM 7.5 MG CAPSULE PO PRN ×2 (00:14→21:09)
[2018-10-09 09:30] VITALS: BP 131/68
[2018-10-09] MEDS: ASPIRIN 325 MG TABLET PO SCH (10:09)
[2018-10-09] MEDS: FUROSEMIDE 20 MG TABLET PO SCH (10:09)
[2018-10-09] MEDS: LITHIUM CARBONATE 150 MG CAPSULE PO SCH ×3 (10:09→16:27)
[2018-10-09] MEDS: PHENOBARBITAL 30 MG TABLET PO SCH ×3 (10:10→16:27)
[2018-10-09] MEDS: PANTOPRAZOLE 40 MG TABLET.DR PO SCH (10:10)
[2018-10-09] MEDS: risperiDONE 1 MG TABLET PO SCH ×4 (10:10→21:30)
[2018-10-09] MEDS: BENZTROPINE MESYLATE (1 MG) 1 MG TABLET PO SCH ×3 (10:13→16:27)
[2018-10-09] MEDS: DILTIAZEM HCL CD 180 MG PO SCH (10:13)
[2018-10-09] MEDS: DIGOXIN 0.125 MG TABLET PO SCH (13:21)
[2018-10-09 16:00] VITALS: BP 126/56
[2018-10-09] MEDS: HYDROCODONE/APAP 5/325MG 1 EACH TABLET PO PRN ×2 (19:44→23:42)
--- NOTE | 2018-10-09 19:45 | NUR ---
C/O ACHY SHOULDERS, 7/10 ON PAIN SCALE, NORCO 5/325 MG TAB PO GIVEN.
[2018-10-09] MEDS: LORAZEPAM 0.5 MG TABLET PO PRN (19:58)
--- NOTE | 2018-10-09 19:59 | NUR ---
ATIVAN 0.5 MG TAB PO GIVEN FOR ANXIETY.
[2018-10-09 20:00] VITALS: BP 148/78
[2018-10-09] MEDS: ATORVASTATIN 10 MG TABLET PO SCH (21:29)
--- NOTE | 2018-10-09 23:42 | NUR ---
c/o back pain, 7/10 on pain scale, norco tab 5/325 mg tab pogiven
[2018-10-10] MEDS: LORAZEPAM 0.5 MG TABLET PO PRN (01:52)
--- NOTE | 2018-10-10 01:54 | NUR ---
UNABLE TO GO BACK TO SLEEP, ATIVAN 0.5 MG TAB PO GIVEN.
[2018-10-10] MEDS: HYDROCODONE/APAP 5/325MG 1 EACH TABLET PO PRN ×3 (06:28→22:54)
[2018-10-10 08:00] VITALS: BP 127/72
[2018-10-10] MEDS: PANTOPRAZOLE 40 MG TABLET.DR PO SCH (08:15)
[2018-10-10] MEDS: DILTIAZEM HCL CD 180 MG PO SCH (08:15)
[2018-10-10] MEDS: ASPIRIN 325 MG TABLET PO SCH (08:15)
[2018-10-10] MEDS: FUROSEMIDE 20 MG TABLET PO SCH (08:15)
[2018-10-10] MEDS: BENZTROPINE MESYLATE (1 MG) 1 MG TABLET PO SCH ×3 (08:15→16:51)
[2018-10-10] MEDS: LITHIUM CARBONATE 150 MG CAPSULE PO SCH ×3 (08:15→16:51)
[2018-10-10] MEDS: risperiDONE 1 MG TABLET PO SCH ×4 (08:15→21:33)
[2018-10-10] MEDS: PHENOBARBITAL 30 MG TABLET PO SCH ×3 (08:15→16:51)
[2018-10-10] MEDS: DIGOXIN 0.125 MG TABLET PO SCH (12:17)
[2018-10-10 16:00] VITALS: BP 108/46
--- NOTE | 2018-10-10 19:30 | NUR ---
GPS RN NOTE, RECEIVED PATIENT AWAKE AND IN ROOM NO S/S OR COMPLAINTS OF PAIN AT THIS TIME. PATIENT IS DISPLAYING NO S/S OF APPARENT DISTRESS AT THIS TIME. PATIENT BREATHING IS UNLABORED WITH EQUAL RISE AND FALL OF THE CHEST. PATIENT IS ALERT AND ORIENTED X 2 ON ROOM AIR WITH A SPO2 OF 99%. PATIENT IS MED COMPLIANT, DISORGANIZED, ANXIOUS, LABILE, COOPERATIVE, AND NEEDS REORIENTATION. PATIENT DENIES SUICIDE AND HOMICIDAL IDEATIONS AT THIS TIME. PATIENT ASSISTED WITH TURNING AND REPOSITIONING Q2HR AND PRN FOR COMFORT AND CIRCULATION. PATIENT HAS NO NEEDS AT THIS TIME. PATIENT EDUCATED ON THE USE OF THE CALL PINA. PATIENT BED SIDE RAILS ARE UP X 2 FOR SAFETY, BED IS LOCKED AND LOW. WILL CONTINUE TO MONITOR AND MAINTAIN SAFETY Q15 MIN WITH THE HELP OF STAFF.
--- NOTE | 2018-10-10 20:00 | NUR ---
GPS RN NOTE, PATIENT REFUSED TO HAVE PICTURES TAKEN TODAY. OFFERED TO TAKE PICTURES THREE TIMES AND STILL PATIENT REFUSED STATING, " NO I DON'T WANT PICTURES TAKEN TODAY ". EDUCATED PATIENT ON HOSPITAL POLICY OF DOING SKIN EXAM AND TAKING PICTURES. WILL CONTINUE TO MONITOR THIS PATIENT.
[2018-10-10 20:55] VITALS: BP 148/72
[2018-10-10] MEDS: ATORVASTATIN 10 MG TABLET PO SCH (21:33)
--- NOTE | 2018-10-10 22:54 | NUR ---
GPS RN NOTE, PATIENT HAS A COMPLAINT OF LOWER BACK PAIN AT 7 OUT 10 ON THE PAIN SCALE AND IS REQUESTING NORCO 5-325 1 TAB PO Q4HR PRN. WILL REASSESS PAIN AND I WILL CONTINUE TO MONITOR THIS PATIENT.
[2018-10-11] MEDS: LORAZEPAM 0.5 MG TABLET PO PRN ×2 (00:16→20:13)
[2018-10-11 08:00] VITALS: BP 118/75
[2018-10-11] MEDS: PANTOPRAZOLE 40 MG TABLET.DR PO SCH (09:44)
[2018-10-11] MEDS: LITHIUM CARBONATE 150 MG CAPSULE PO SCH ×2 (09:44→13:42)
[2018-10-11] MEDS: risperiDONE 1 MG TABLET PO SCH ×4 (09:45→21:08)
[2018-10-11] MEDS: DILTIAZEM HCL CD 180 MG PO SCH (09:45)
[2018-10-11] MEDS: ASPIRIN 325 MG TABLET PO SCH (09:45)
[2018-10-11] MEDS: PHENOBARBITAL 30 MG TABLET PO SCH ×3 (09:45→16:33)
[2018-10-11] MEDS: FUROSEMIDE 20 MG TABLET PO SCH (09:45)
[2018-10-11] MEDS: BENZTROPINE MESYLATE (1 MG) 1 MG TABLET PO SCH ×3 (09:46→16:33)
[2018-10-11] MEDS ORDERED: LITHIUM CARBONATE 150 MG CAPSULE PO SCH ×2 (13:00→20:00)
[2018-10-11] MEDS: DIGOXIN 0.125 MG TABLET PO SCH (13:43)
[2018-10-11 16:00] VITALS: BP 118/69
[2018-10-11] MEDS: HYDROCODONE/APAP 5/325MG 1 EACH TABLET PO PRN ×2 (16:55→22:58)
--- NOTE | 2018-10-11 16:56 | NUR ---
GPS/RN-NOTES PATIENT REQUESTING NORCO FOR 01/19 RIGHT LEG. NORCO 5/325MG 1 TAB. P.O GIVEN PRN ORDER.
[2018-10-11 20:34] VITALS: BP 130/71
[2018-10-11] MEDS: ATORVASTATIN 10 MG TABLET PO SCH (21:08)
[2018-10-11] MEDS: TEMAZEPAM 7.5 MG CAPSULE PO PRN (21:26)
[2018-10-12 08:00] VITALS: BP 110/64
[2018-10-12] MEDS: PANTOPRAZOLE 40 MG TABLET.DR PO SCH (08:11)
[2018-10-12] MEDS: LITHIUM CARBONATE 150 MG CAPSULE PO SCH ×2 (08:11→12:51)
[2018-10-12] MEDS: BENZTROPINE MESYLATE (1 MG) 1 MG TABLET PO SCH ×2 (08:12→12:51)
[2018-10-12] MEDS: PHENOBARBITAL 30 MG TABLET PO SCH ×2 (08:12→12:51)
[2018-10-12] MEDS: ASPIRIN 325 MG TABLET PO SCH (08:12)
[2018-10-12] MEDS: FUROSEMIDE 20 MG TABLET PO SCH (08:12)
[2018-10-12] MEDS: risperiDONE 1 MG TABLET PO SCH ×2 (08:12→12:51)
[2018-10-12 08:16] VITALS: BP 110/64
[2018-10-12] MEDS: DILTIAZEM HCL CD 180 MG PO SCH (08:16)
--- NOTE | 2018-10-12 12:34 | NUR ---
PRETTY faxed a referral packet to from [facility] ([phone]) to the fax number: [phone].
--- NOTE | 2018-10-12 12:45 | NUR ---
SW conducted a substance abuse intervention with the pt due to methamphetamine use.
[2018-10-12] MEDS: DIGOXIN 0.125 MG TABLET PO SCH (12:53)
--- NOTE | 2018-10-12 13:20 | NUR ---
GPS RN NOTE: PATIENT DISCHARGED TO [facility], PICKED UP BY THE [facility] WITH 2 PERSONS ASSIST [employer]IA [employer]. PATIENT DENIES SI/HI/AH/VH, REFUSED BODY CHECKED, EXPLAINED THE RISK AND BENEFITS X 3, PATIENT STILL REFUSED, PATIENT CONTRACTED FOR SAFETY, DISCHARGE INSTRUCTION AND TEACHING RENDERED. PATIENT HAS NO SOB, NO ACUTE DISTRESS, BREATHING EVEN AND UNLABORED, DENIES PAIN AND DISCOMFORT, REPORT GIVEN TO KRISTEN GANNON. DISCHARGED.
--- NOTE | 2018-10-12 13:39 | NUR ---
Discharge Note: Pt was discharged to [facility] ([facility]) located at [address] [place] [address] ([phone]). Pt was transported via [facility] (Trip #[id number]) at 1PM. There was no one in the pts support system to contact for this pts discharge. Upon discharge, the pt appeared to be in a euthymic mood and presented with a calm affect. The pt denied both suicidal and homicidal ideation as well as auditory and visual hallucinations. Pt was provided with three substance abuse referrals at the time of discharge that are listed below. The pt will be under the care of his psychiatrist, Dr. Olga Cunningham, located at [address] [address], [place] [address]; and portable sawyer, Dr. All Tellez, located at [address] [place] [address]; . Pt will continue to address his substance use with his treatment plan. Substance Abuse Referrals: [facility] [address] [place] [address] Tel. [facility] [address] [place] Provider Mental Health Treatment Tele-dermatology HIV Services [facility] [address] [place] [address] [facility] [address] [place] [address]
== END 2018-10-12 13:40 | DRG 885 ==
LOC: ER 01:45 → GPS 04:55
PROVIDERS: ADMIT Psychiatry & Neurology Psychosomatic Medicine; ATTEND Psychiatry & Neurology Psychosomatic Medicine
DX: F25.0 Schizoaffective disorder, bipolar type (principal); I11.0 Hypertensive heart disease with heart failure; R45.851 Suicidal ideations; G40.909 Epilepsy, unspecified, not intractable, without status epilepticus; I25.10 Atherosclerotic heart disease of native coronary artery without angina pectoris; I48.2 Chronic atrial fibrillation; I50.9 Heart failure, unspecified; E78.5 Hyperlipidemia, unspecified; E66.01 Morbid (severe) obesity due to excess calories; K21.9 Gastro-esophageal reflux disease without esophagitis; Z90.49 Acquired absence of other specified parts of digestive tract; Z91.041 Radiographic dye allergy status; Z79.82 Long term (current) use of aspirin; J44.9 Chronic obstructive pulmonary disease, unspecified; Z68.38 Body mass index [BMI] 38.0-38.9, adult; D36.7 Benign neoplasm of other specified sites
CPT/HCPCS: 36415; 71045-TC; 80048-TC; 80061-TC; 80076-TC; 80162-TC; 80184; 80305; 81000-TC; 82565-TC; 83735-TC; 84100-TC; 85025-TC; 87081-TC; G0480

== ENCOUNTER 2019-05-13 10:28 | Emergency (ER) | payer MEDICARE, MEDICAID ==
[~2019-05-13] VITALS: Ht 188 cm; Wt 103.9 kg
[~2019-05-13 10:28] MED LIST changes: +ACET-73 PO; -ASPI-1169 PO; +ASPI-992 PO; +BISA10SU11 RC; -BISA10SU8 RC; -CALC-7 PO; -DILT240C88 PO; +DILT360T13 PO; -DOCU-141 PO; +LORA-259 PO; -MUPI1OIN NS; +PHEN30TA40 PO; -PHEN97.22 PO; +RISP1TAB7 PO; +RISP2TAB5 PO; -SENN-168 PO; +TEMA15CA5 PO
--- NOTE | 2019-05-13 10:28 | NUR ---
BRIDGET RA 59 FROM CARE FACILITY,S/P SEIZURE EPISODE, TO ER BED 2, HOOKED TO MONITOR, CHANGED TO HOSPITAL [facility], AWAITING MD GANDARA.
--- NOTE | 2019-05-13 10:54 | NUR ---
DR ROSARIO AT BEDSIDE
[2019-05-13] MEDS ORDERED: ACETAMINOPHEN ES 500 MG TABLET PO ONE (11:00)
[2019-05-13] MEDS ORDERED: ACETAMINOPHEN ES 500 MG TABLET ONE (11:04)
[2019-05-13 11:28] LABS: CALCIUM, SERUM 8.8 mg/dL (8.5-10.1); CREATININE 0.7 mg/dL (0.6-1.3); POTASSIUM 4.7 mmol/L (3.5-5.1)
[2019-05-13 11:37] LABS: BASOPHILS % (AUTO) 0.3 % (0.0-2.0); EOSINOPHILS % (AUTO) 1.2 % (0.0-6.0); HEMATOCRIT 45 % (39-51); HEMOGLOBIN 15.2 g/dL (13.5-17.5); LYMPHOCYTES # (AUTO) 0.6 /CMM (0.8-4.8); LYMPHOCYTES % (AUTO) 6.4 % (20.0-44.0); MEAN CORPUSCULAR HGB CONC 34 g/dl (31.0-36.0); MEAN CORPUSCULAR VOLUME 87 fL (80-96); MONOCYTES # (AUTO) 0.5 /CMM (0.1-1.30); MONOCYTES % (AUTO) 5.7 % (2.0-12.0); NEUTROPHILS # (AUTO) 7.6 /CMM (1.8-8.9); NEUTROPHILS % (AUTO) 86.4 % (43.0-81.0); PLATELET COUNT (AUTO) 179 /CMM (150-450); WHITE BLOOD COUNT (AUTO) 8.8 K/uL (4.3-11.0)
--- NOTE | 2019-05-13 13:35 | NUR ---
[facility] ETA 1400
--- NOTE | 2019-05-13 15:05 | NUR ---
Patient transferred to facility via ambulance. Written and verbal after care instructions given. Patient verbalizes understanding of instruction.
[2019-05-13 15:06] VITALS: BP 119/65
== END 2019-05-13 15:07 ==
LOC: ER 10:29
DX: G40.909 Epilepsy, unspecified, not intractable, without status epilepticus (principal); I10 Essential (primary) hypertension; Z98.890 Other specified postprocedural states; Z90.49 Acquired absence of other specified parts of digestive tract; Z88.8 Allergy status to other drugs, medicaments and biological substances; Z79.899 Other long term (current) drug therapy; Z79.82 Long term (current) use of aspirin
CPT/HCPCS: 36415; 80048-TC; 80184; 85025-TC

== ENCOUNTER 2023-06-02 04:44 | Emergency (ER) | payer MEDICARE, OTHER ==
[~2023-06-02] VITALS: Ht 190.5 cm; Wt 129.3 kg
[~2023-06-02 04:44] MED LIST changes: +ACET325T53 PO; +ASCO500C17 PO; +ASPI-1169 PO; +BENZ1TAB7 PO; +CHOL200013 PO; +DILT-1 PO; +DOCU-141 PO; +FERR325T23 PO; +GABA100C PO; +LEVE1000 PO; +LITH300T3 PO; +MULT-447 PO; +PANT40TA2 PO; -PANT40TA4 PO; +PANT40TA49 PO; +POLY119P2 PO; +POTA20TA83 PO; +QUET200T PO; +RISP3TAB5 PO; +SENN-175 PO
[2023-06-02 05:49] LABS: BASOPHILS % (AUTO) 0.1 % (0.0-2.0); EOSINOPHILS # (AUTO) 0.1 K/uL (0.0-0.7); EOSINOPHILS % (AUTO) 0.7 % (0.0-6.0); HEMATOCRIT 43 % (39-51); HEMOGLOBIN 14.4 g/dL (13.5-17.5); LYMPHOCYTES # (AUTO) 0.5 K/uL (0.8-4.8); LYMPHOCYTES % (AUTO) 4.8 % (20.0-44.0); MEAN CORPUSCULAR HEMOGLOBIN 29 PG (26.0-33.0); MEAN CORPUSCULAR HGB CONC 34 g/dl (31.0-36.0); MEAN CORPUSCULAR VOLUME 85 fL (80-96); MONOCYTES # (AUTO) 0.8 K/uL (0.1-1.30); MONOCYTES % (AUTO) 6.9 % (2.0-12.0); NEUTROPHILS # (AUTO) 9.9 K/uL (1.8-8.9); NEUTROPHILS % (AUTO) 87.5 % (43.0-81.0); PLATELET COUNT (AUTO) 223 K/uL (150-450); RED BLOOD CELL COUNT(AUTO) 5.03 MIL/uL (4.5-6.0); RED CELL DISTRIBUTION WIDTH 14.9 % (11.5-15.0); WHITE BLOOD COUNT (AUTO) 11.3 K/uL (4.3-11.0)
[2023-06-02 05:52] LABS: APPEARANCE,URINE CLEAR (CLEAR); BILIRUBIN,URINE NEGATIVE (NEGATIVE); BLOOD, URINE NEGATIVE Ery/uL (NEGATIVE); COLOR,URINE DARK YELLOW (YELLOW); KETONES,URINE NEGATIVE (NEGATIVE); LEUKOCYTE ESTERASE ,URINE NEGATIVE (NEGATIVE); NITRITE, URINE NEGATIVE (NEGATIVE); PROTEIN,URINE NEGATIVE (NEGATIVE); UGLUCOSE NEGATIVE (NEGATIVE); UROBILINOGEN,URINE 0.2 EU/dL (0.2)
[2023-06-02 05:57] LABS: CALCIUM, SERUM 9.4 mg/dL (8.5-10.1); CARBON DIOXIDE 24 mmol/L (21-32); CHLORIDE 103 mmol/L (98-107); CREATININE 0.7 mg/dL (0.6-1.3); GLUCOSE 91 mg/dL (74-106); POTASSIUM 3.8 mmol/L (3.5-5.1); SODIUM SERUM 136 mmol/L (136-145); UREA NITROGEN, BLOOD 24 mg/dL (7-18)
[2023-06-02 06:03] LABS: ALANINE AMINOTRANSFERASE 30 U/L (12-78); ALBUMIN 4.2 g/dL (3.4-5.0); ALCOHOL, BLOOD < 3 mg/dL (0-10); ALKALINE PHOSPHATASE 159 U/L (46-116); ASPARTATE AMINOTRANSFERASE 12 U/L (15-37); BILIRUBIN,DIRECT 0.1 mg/dL (0.0-0.2); BILIRUBIN,TOTAL 0.3 mg/dL (0.2-1.0); TOTAL PROTEIN, SERUM 7.3 g/dL (6.4-8.2)
[2023-06-02 06:05] LABS: AMPHETAMINE, URINE NEGATIVE (NEGATIVE); BENZODIAZEPINE, URINE NEGATIVE (NEGATIVE); CANNABINOID, URINE NEGATIVE (NEGATIVE); COCCAINE, URINE NEGATIVE (NEGATIVE); PHENCYCLIDINE SCREEN,URINE NEGATIVE (NEGATIVE)
[2023-06-02 06:11] LABS: BARBITURATE, URINE POSITIVE (NEGATIVE); OPIATE, URINE POSITIVE (NEGATIVE)
[2023-06-02 06:11] LABS: ACETAMINOPHEN 0 ug/ml (10-30); SALICYLATE 0.7 mg/dL (2.8-20.0)
[2023-06-02] MEDS ORDERED: FUROSEMIDE 20 MG TABLET PO ONE (07:30)
[2023-06-02] MEDS ORDERED: DIGOXIN 0.125 MG TABLET PO ONE (07:30)
[2023-06-02] MEDS ORDERED: DILTIAZEM HCL CD 240 MG PO SCH (09:00)
[2023-06-02] MEDS ORDERED: DIGOXIN 0.125 MG TABLET ONE (09:00)
[2023-06-02] MEDS ORDERED: DILTIAZEM HCL CD 120 MG ONE (09:00)
[2023-06-02] MEDS ORDERED: FUROSEMIDE 20 MG TABLET ONE (09:01)
[2023-06-02 16:30] VITALS: BP 133/86; TEMP 98.2; O2SAT 99
== END 2023-06-02 16:50 ==
LOC: MERGE 05:21 → ER 05:21
DX: R45.851 Suicidal ideations (principal); I11.0 Hypertensive heart disease with heart failure; I50.9 Heart failure, unspecified; I48.91 Unspecified atrial fibrillation; J44.9 Chronic obstructive pulmonary disease, unspecified; F20.9 Schizophrenia, unspecified; Z88.8 Allergy status to other drugs, medicaments and biological substances; Z91.013 Allergy to seafood; Z79.899 Other long term (current) drug therapy
CPT/HCPCS: 36415; 71045-TC; 80048-TC; 80076-TC; 85025-TC; G0480

== ENCOUNTER 2024-08-25 21:11 | Inpatient (IN) | payer MEDICARE, OTHER ==
[~2024-08-25] VITALS: Ht 170.2 cm; Wt 88.9 kg
[2024-08-25 22:04] LABS: BASOPHILS # (AUTO) 0.1 K/uL (0.0-0.2); BASOPHILS % (AUTO) 0.9 % (0.0-2.0); EOSINOPHILS % (AUTO) 0.4 % (0.0-6.0); HEMATOCRIT 42 % (39-51); HEMOGLOBIN 14.3 g/dL (13.5-17.5); LYMPHOCYTES # (AUTO) 0.5 K/uL (0.8-4.8); LYMPHOCYTES % (AUTO) 5.3 % (20.0-44.0); MEAN CORPUSCULAR HEMOGLOBIN 29 PG (26.0-33.0); MEAN CORPUSCULAR HGB CONC 34 g/dl (31.0-36.0); MEAN CORPUSCULAR VOLUME 84 fL (80-96); MONOCYTES % (AUTO) 9.7 % (2.0-12.0); NEUTROPHILS # (AUTO) 8.6 K/uL (1.8-8.9); NEUTROPHILS % (AUTO) 83.7 % (43.0-81.0); PLATELET COUNT (AUTO) 229 K/uL (150-450); RED BLOOD CELL COUNT(AUTO) 5.02 MIL/uL (4.5-6.0); WHITE BLOOD COUNT (AUTO) 10.2 K/uL (4.3-11.0)
[2024-08-25 22:11] LABS: CALCIUM, SERUM 9.1 mg/dL (8.5-10.1); CARBON DIOXIDE 30 mmol/L (21-32); CHLORIDE 102 mmol/L (98-107); CREATININE 0.6 mg/dL (0.6-1.3); GLUCOSE 97 mg/dL (74-106); POTASSIUM 4.5 mmol/L (3.5-5.1); SODIUM SERUM 139 mmol/L (136-145); UREA NITROGEN, BLOOD 17 mg/dL (7-18)
[2024-08-25] MEDS ORDERED: DILTIAZEM HCL IV 125 MG in IV NS 0.9% 100 ML IV PRN (22:30)
[2024-08-25] MEDS ORDERED: DILTIAZEM HCL 50 MG IV ONE ×2 (22:35→22:52)
[2024-08-25] MEDS: DILTIAZEM HCL 50 MG IV IV ONE (22:39)
[2024-08-25 22:59] LABS: INR 1.09 (0.91-1.10); PARTIAL THROMBOPLASTIN TIME 35.6 SEC (24.3-34.3); PROTHROMBIN TIME 11.5 SECS (9.2-11.1)
[2024-08-25] MEDS ORDERED: ONDANSETRON HCL/PF 4 MG/2 ML VIAL IVP PRN (23:30)
[2024-08-25] MEDS ORDERED: LORAZEPAM 1 MG TABLET PO PRN (23:30)
[2024-08-25] MEDS ORDERED: MORPHINE SULFATE INJ 2 MG/ML DISP.SYRIN IV PRN (23:30)
[2024-08-25] MEDS ORDERED: hydrALAZINE HCL IV 20 MG VIAL IV PRN (23:30)
[2024-08-25] MEDS ORDERED: MAGNESIUM HYDROXIDE 30 ML UDC PO PRN (23:30)
[2024-08-26 04:00] VITALS: BP 128/86; TEMP 97.3; O2SAT 98
[2024-08-26 07:14] LABS: BASOPHILS # (AUTO) 0.1 K/uL (0.0-0.2); BASOPHILS % (AUTO) 0.6 % (0.0-2.0); EOSINOPHILS # (AUTO) 0.1 K/uL (0.0-0.7); EOSINOPHILS % (AUTO) 0.6 % (0.0-6.0); HEMATOCRIT 41 % (39-51); HEMOGLOBIN 13.9 g/dL (13.5-17.5); LYMPHOCYTES % (AUTO) 9.9 % (20.0-44.0); MEAN CORPUSCULAR HEMOGLOBIN 28 PG (26.0-33.0); MEAN CORPUSCULAR HGB CONC 34 g/dl (31.0-36.0); MEAN CORPUSCULAR VOLUME 83 fL (80-96); MONOCYTES % (AUTO) 9.6 % (2.0-12.0); NEUTROPHILS # (AUTO) 8.3 K/uL (1.8-8.9); NEUTROPHILS % (AUTO) 79.3 % (43.0-81.0); PLATELET COUNT (AUTO) 224 K/uL (150-450); RED BLOOD CELL COUNT(AUTO) 4.94 MIL/uL (4.5-6.0); RED CELL DISTRIBUTION WIDTH 16.1 % (11.5-15.0); WHITE BLOOD COUNT (AUTO) 10.4 K/uL (4.3-11.0)
[2024-08-26 07:26] LABS: ALBUMIN 3.2 g/dL (3.4-5.0); BILIRUBIN,TOTAL 0.5 mg/dL (0.2-1.0); CREATININE 0.4 mg/dL (0.6-1.3); PHOSPHORUS 3.4 mg/dL (2.5-4.9); POTASSIUM 4.4 mmol/L (3.5-5.1); TOTAL PROTEIN, SERUM 6.8 g/dL (6.4-8.2)
[2024-08-26 08:00] VITALS: BP 130/88; TEMP 98.1; O2SAT 99
[2024-08-26] MEDS ORDERED: CYPR4TAB44 PO (09:10)
[2024-08-26] MEDS ORDERED: TAMS-12 PO (09:10)
[2024-08-26] MEDS ORDERED: GABA300C PO (09:10)
[2024-08-26] MEDS ORDERED: TRAZ-257 PO (09:10)
[2024-08-26] MEDS ORDERED: MENT71OI2 TP (09:10)
[2024-08-26] MEDS ORDERED: DIVA500T4 PO (09:10)
[2024-08-26] MEDS ORDERED: APIX5TAB PO (09:10)
[2024-08-26] MEDS ORDERED: LEVE500T20 PO (09:10)
[2024-08-26] MEDS ORDERED: FAMO20TA8 PO (09:10)
[2024-08-26] MEDS ORDERED: BENZ1TAB7 PO (09:10)
[2024-08-26] MEDS ORDERED: ATOR40TA PO (09:10)
[2024-08-26] MEDS: DOCUSATE SODIUM LIQ 100 MG/10 ML UDC PO SCH (09:28)
[2024-08-26] MEDS: POLYETHYLENE GLYCOL 3350 17 GM POWD.PACK PO SCH (09:28)
[2024-08-26] MEDS: PANTOPRAZOLE 40 MG TABLET.DR PO SCH (09:28)
[2024-08-26] MEDS: GABAPENTIN 100 MG CAPSULE PO SCH (09:28)
[2024-08-26] MEDS: LITHIUM CARBONATE ER 300 MG TABLET.SA PO SCH (09:28)
[2024-08-26] MEDS: PHENOBARBITAL 30 MG TABLET PO SCH (09:29)
[2024-08-26] MEDS: FUROSEMIDE 20 MG TABLET PO SCH (09:30)
[2024-08-26] MEDS: risperiDONE 1 MG TABLET PO SCH ×2 (09:30→21:19)
[2024-08-26] MEDS: DILTIAZEM HCL CD 120 MG PO SCH (09:32)
[2024-08-26] MEDS: ASPIRIN 81 MG TAB.CHEW PO SCH (09:32)
[2024-08-26] MEDS: BENZTROPINE MESYLATE (1 MG) 1 MG TABLET PO SCH (09:32)
[2024-08-26] MEDS: LEVETIRACETAM (250 MG) 250 MG TABLET PO SCH (09:33)
[2024-08-26] MEDS: OXCARBAZEPINE 150 MG TABLET PO SCH (09:33)
[2024-08-26] MEDS: DIGOXIN 0.125 MG TABLET PO SCH (09:33)
[2024-08-26] MEDS: FERROUS SULFATE (325 MG) 325 MG/TAB TABLET PO SCH (09:33)
[2024-08-26] MEDS: APIXABAN 5 MG TABLET PO SCH (09:42)
[2024-08-26 12:00] VITALS: BP 127/78; TEMP 97.7; O2SAT 98
[2024-08-26 16:00] VITALS: BP 115/81; TEMP 98.6; O2SAT 98
[2024-08-26 20:00] VITALS: BP 129/95; TEMP 97.9; O2SAT 98
[2024-08-26] MEDS: ATORVASTATIN 10 MG TABLET PO SCH (21:18)
[2024-08-26] MEDS: ACETAMINOPHEN 325 MG TABLET PO PRN (22:18)
[2024-08-27] VITALS: BP 125/87; TEMP 98.6; O2SAT 97
[2024-08-27 04:00] VITALS: BP 129/81; TEMP 98.2; O2SAT 96
[2024-08-27 08:00] VITALS: BP 120/92; TEMP 97.9; O2SAT 98
[2024-08-27 12:00] VITALS: BP 116/75; TEMP 98; O2SAT 98
[2024-08-27 16:00] VITALS: BP 118/87; TEMP 97.6; O2SAT 95
[2024-08-27] MEDS: DILTIAZEM HCL CD 180 MG PO SCH (16:51)
[2024-08-27 20:00] VITALS: BP 110/81; TEMP 98.1; O2SAT 99
[2024-08-27 20:06] LABS: AMPHETAMINE, URINE NEGATIVE (NEGATIVE); BENZODIAZEPINE, URINE NEGATIVE (NEGATIVE); CANNABINOID, URINE NEGATIVE (NEGATIVE); COCCAINE, URINE NEGATIVE (NEGATIVE); OPIATE, URINE NEGATIVE (NEGATIVE); PHENCYCLIDINE SCREEN,URINE NEGATIVE (NEGATIVE)
[2024-08-27 20:08] LABS: BARBITURATE, URINE POSITIVE (NEGATIVE)
[2024-08-28] VITALS: BP 121/88; TEMP 98.6; O2SAT 97
[2024-08-28 04:00] VITALS: BP 123/84; TEMP 97.5; O2SAT 100
[2024-08-28 08:00] VITALS: BP 118/71; TEMP 97.7; O2SAT 100
[2024-08-28 12:00] VITALS: BP 128/81; TEMP 98.2; O2SAT 100
[2024-08-28] MEDS ORDERED: DILT180C66 PO (12:32)
[2024-08-28] MEDS ORDERED: FURO20TA4 PO (12:32)
[2024-08-28] MEDS ORDERED: APIX5TAB PO (12:32)
[2024-08-28 17:17] VITALS: BP 127/84
== END 2024-08-28 17:47 | DRG 309 ==
LOC: ER 21:14 → TELE-TD 08-26 02:01 → TELE1 08-26 03:57
PROVIDERS: ADMIT Internal Medicine; ATTEND Nurse Practitioner Acute Care
DX: I48.91 Unspecified atrial fibrillation (principal); E44.1 Mild protein-calorie malnutrition; Z59.00 Homelessness unspecified; I50.42 Chronic combined systolic (congestive) and diastolic (congestive) heart failure; I11.0 Hypertensive heart disease with heart failure; I25.10 Atherosclerotic heart disease of native coronary artery without angina pectoris; K22.0 Achalasia of cardia; G40.909 Epilepsy, unspecified, not intractable, without status epilepticus; E78.5 Hyperlipidemia, unspecified; E88.09 Other disorders of plasma-protein metabolism, not elsewhere classified; F20.9 Schizophrenia, unspecified; J44.9 Chronic obstructive pulmonary disease, unspecified; Z79.01 Long term (current) use of anticoagulants; Z79.82 Long term (current) use of aspirin; Q85.00 Neurofibromatosis, unspecified; G20.A1 Parkinson's disease without dyskinesia, without mention of fluctuations; Z68.30 Body mass index [BMI] 30.0-30.9, adult
CPT/HCPCS: 36415; 70450-TC; 71045-TC; 80048-TC; 80053-TC; 82962-TC; 83735-TC; 84100-TC; 84484-TC; 85025-TC; 85730-TC; 87081-TC; 93307-TC; A4223; G0378; J3490; J7030